=== PATIENT | female | born 1995 | race Caucasian/White ===

== ENCOUNTER → 2017-09-17 | Outpatient (CLI) | payer OTHER ==
[~2017-09-17] MED LIST: ALBIPROI INH; ALBU90I INH; ALBU90OI INH; ALBU90OI61 INH; ALBUIS IH; ASCO1ER; AZIT250 PO; AZIT500 PO; BENTYL10 MG; BIRTH CONTROL; BIRTH CONTROL IMPLAN; BIRTH CONTROL PO; BUPR150ER; CEPH250A PO; CEPH500 PO; CIPR500; CIPR500 PO; CLIN300 PO; CODACE30 PO; CODGUAEL PO; CYCL10 PO; CYPR4 PO; Cleocin HCl150 MG PO; Cyclobenzaprine5 MG PO; DOXY100 PO; DOXY100T53 PO; Desyrel50 MG; ERYES400 PO; ESOM20 PO; FLUSAL2505 INH; HA MED; HEADACHE MED PO; HYDACE5 PO; HYDR1TAB94; IBUP200 PO; IBUP400 PO; IBUP600 PO; IBUP800 PO; Keflex500 MG PO; LORA1 PO; MELATONIN; MINO50 PO; MULVITA; MULVITMIND PO; NAPR500 PO; NAPR550 PO; Norco 5-325 Ta1 EACH PO; ORTHO TRICYCLEN PO; ORTHOCYCLINE; OXYACE5T PO; Omeprazole20 M1; PERM5TC TOP; PRED20 PO; PROM25 PO; Percocet 5-3251 EACH PO; Phenergan25 MG PR; Prednisone20 MG PO; RXALBOI INH; RXCODACET PO; RXCYCL10 PO; RXHYD5325 PO; RXNAPNA550 PO; SERT100 PO; SERT50; SERT50 PO; SPACE CHAMBER1 EACH MC; SUMA25 PO; TETR250; TRAM50 PO; Zithromax250 MG PO; [UNRECOGNIZED DRUG - OTHER]; [UNRECOGNIZED DRUG - REMARK]
== END ==
LOC: LAB SHORT 15:34
DX: R10.13 Epigastric pain (principal)
CPT/HCPCS: 87338

== ENCOUNTER → 2017-11-08 | Outpatient (CLI) | payer OTHER ==
[2017-11-08 17:06] LABS: Anion Gap 10 mmol/L (6-16); BASOPHILS ABSOLUTE AUTO 0.01 K/mm3 (0.00-0.23); BASOPHILS PERCENT AUTO 0 % (0-2); Blood Urea Nitrogen 8 mg/dL (8-24); Bun/Creatinine Ratio 8.8 (12.0-20.0); CO2, Blood 25 mmol/L (21-32); Calcium, Blood 9.2 mg/dL (8.5-10.1); Chloride, Blood 103 mmol/L (98-108); Creatinine, Blood 0.91 mg/dL (0.40-1.00); EOSINOPHILS ABSOLUTE AUTO 0.02 K/mm3 (0.00-0.68); EOSINOPHILS PERCENT AUTO 0 % (0-6); Glomerular Filtration Rate >60 (60-); Glucose, Blood 93 mg/dL (70-99); Hematocrit 40.2 % (33.0-51.0); Hemoglobin 13.5 g/dL (11.5-16.0); IMMATURE GRAN ABSOLUTE AUTO 0.01 K/mm3 (0.00-0.10); IMMATURE GRAN PERCENT AUTO 0 % (0-1); LYMPHOCYTES ABSOLUTE AUTO 1.41 K/mm3 (0.84-5.20); LYMPHOCYTES PERCENT AUTO 16 % (21-46); MONOCYTES ABSOLUTE AUTO 1.18 K/mm3 (0.16-1.47); MONOCYTES PERCENT AUTO 13 % (4-13); Mean Corpuscular HGB 29.5 pg (26.0-34.0); Mean Corpuscular HGB Conc 33.6 g/dL (31.5-36.5); Mean Corpuscular Volume 88 fL (80-100); NEUTROPHILS ABSOLUTE AUTO 6.43 K/mm3 (1.96-9.15); NEUTROPHILS PERCENT AUTO 71 % (41-73); Platelet Count 190 K/mm3 (150-400); Potassium, Blood 3.8 mmol/L (3.5-5.5); RDW Coefficient Variation 12.5 % (11.7-14.2); RDW Standard Deviation 39.9 fL (35.1-46.3); Red Blood Cell Count 4.57 M/mm3 (3.80-5.20); Sodium, Blood 138 mmol/L (136-145); White Blood Cell Count 9.06 K/mm3 (4.00-11.30)
== END ==
LOC: LAB SHORT 16:45
PROVIDERS: Family Medicine
DX: N12 Tubulo-interstitial nephritis, not specified as acute or chronic (principal)
CPT/HCPCS: 80048; 85025; 87077; 87086; 87186

== ENCOUNTER 2017-11-13 07:34 | Day surgery (SDC) | payer OTHER ==
[~2017-11-13] VITALS: Ht 160 cm; Wt 76.8 kg
[~2017-11-13 07:34] MED LIST changes: -BUPR150ER; -CIPR500
[2017-11-13] MEDS ORDERED: CIPR500 (08:02)
== END 2017-11-13 09:14 | disposition home or self-care (01) ==
LOC: ORSCSDS 07:34
PROVIDERS: Internal Medicine Gastroenterology
PROC: 0DB68ZX Excision of Stomach, Via Natural or Artificial Opening Endoscopic, Diagnostic (ICD-10-PCS; principal; 2017-11-13 08:45)
DX: R10.13 Epigastric pain (principal); R11.2 Nausea with vomiting, unspecified; K25.9 Gastric ulcer, unspecified as acute or chronic, without hemorrhage or perforation; K29.80 Duodenitis without bleeding; K29.70 Gastritis, unspecified, without bleeding; K20.9 Esophagitis, unspecified; Z79.899 Other long term (current) drug therapy
CPT/HCPCS: 88305; 88342; J2250

== ENCOUNTER 2018-02-26 07:57 | Day surgery (SDC) | payer OTHER ==
[~2018-02-26] VITALS: Ht 160 cm; Wt 78.9 kg
[~2018-02-26 07:57] MED LIST changes: +CIPR500
[2018-02-26] MEDS ORDERED: BUPR150ER (08:31)
== END 2018-02-26 09:51 | disposition home or self-care (01) ==
LOC: ORSCSDS 07:57
PROVIDERS: Internal Medicine Gastroenterology
PROC: 0DB68ZX Excision of Stomach, Via Natural or Artificial Opening Endoscopic, Diagnostic (ICD-10-PCS; principal; 2018-02-26 09:00)
DX: R10.9 Unspecified abdominal pain (principal); F41.9 Anxiety disorder, unspecified; K20.9 Esophagitis, unspecified; K29.80 Duodenitis without bleeding; K29.70 Gastritis, unspecified, without bleeding; K92.1 Melena; R14.0 Abdominal distension (gaseous); J45.909 Unspecified asthma, uncomplicated; R11.0 Nausea; Z79.899 Other long term (current) drug therapy
CPT/HCPCS: 87081; 88305; 88342; J7120

== ENCOUNTER → 2018-03-25 | Outpatient (CLI) | payer OTHER ==
[~2018-03-25] MED LIST changes: +BUPR150ER
== END | disposition home or self-care (01) ==
LOC: LAB 18:00 → LAB SHORT 18:00
DX: R35.0 Frequency of micturition (principal); R82.99 Other abnormal findings in urine
CPT/HCPCS: 87086

== ENCOUNTER 2018-10-11 09:08 | Emergency (ER) | payer OTHER ==
[~2018-10-11] VITALS: Ht 160 cm; Wt 71.7 kg
[2018-10-11 09:48] LABS: BASOPHILS ABSOLUTE AUTO 0.03 K/mm3 (0.00-0.23); BASOPHILS PERCENT AUTO 1 % (0-2); EOSINOPHILS ABSOLUTE AUTO 0.03 K/mm3 (0.00-0.68); EOSINOPHILS PERCENT AUTO 1 % (0-6); Hematocrit 40.4 % (33.0-51.0); Hemoglobin 13.5 g/dL (11.5-16.0); IMMATURE GRAN PERCENT AUTO 0 % (0-1); LYMPHOCYTES ABSOLUTE AUTO 1.85 K/mm3 (0.84-5.20); LYMPHOCYTES PERCENT AUTO 37 % (21-46); MONOCYTES PERCENT AUTO 8 % (4-13); Mean Corpuscular HGB 30.6 pg (26.0-34.0); Mean Corpuscular HGB Conc 33.4 g/dL (31.5-36.5); Mean Corpuscular Volume 92 fL (80-100); Mean Platelet Volume 10.2 fL (9.1-12.4); NEUTROPHILS ABSOLUTE AUTO 2.66 K/mm3 (1.96-9.15); NEUTROPHILS PERCENT AUTO 54 % (41-73); Platelet Count 251 K/mm3 (150-400); RDW Coefficient Variation 11.8 % (11.7-14.2); RDW Standard Deviation 39.8 fL (35.1-46.3); Red Blood Cell Count 4.41 M/mm3 (3.80-5.20); White Blood Cell Count 4.97 K/mm3 (4.00-11.30)
== END 2018-10-11 10:53 | disposition home or self-care (01) ==
LOC: ER 09:08
PROVIDERS: Internal Medicine
DX: O03.4 Incomplete spontaneous abortion without complication (principal); Z88.0 Allergy status to penicillin; Z88.2 Allergy status to sulfonamides; J45.909 Unspecified asthma, uncomplicated
CPT/HCPCS: 36415; 84702; 85025; 86900; 86901; 99283

== ENCOUNTER → 2019-08-20 | Outpatient (CLI) | payer OTHER | END | disposition home or self-care (01) | LOC: LAB SHORT 15:00 → LAB 15:00 | DX: A49.01 Methicillin susceptible Staphylococcus aureus infection, unspecified site (principal) | CPT/HCPCS: 87081 ==

== ENCOUNTER → 2019-09-22 | Outpatient (CLI) | payer OTHER | END | disposition home or self-care (01) | LOC: LAB 17:44 → LAB SHORT 17:44 | DX: A49.01 Methicillin susceptible Staphylococcus aureus infection, unspecified site (principal) | CPT/HCPCS: 87081 ==

== ENCOUNTER 2022-02-16 22:00 | Emergency (ER) | payer OTHER ==
[~2022-02-16] VITALS: Ht 160 cm; Wt 81.7 kg
[~2022-02-16 22:00] MED LIST changes: +FERSU300 PO; +OMEP20ER PO; +PRENATAL TABLE1 EAC2 PO
[2022-02-16] MEDS ORDERED: Vibramycin100 MG PO (23:15)
== END 2022-02-16 23:39 | disposition home or self-care (01) ==
LOC: ER 22:00
DX: S09.8XXA Other specified injuries of head, initial encounter (principal); W50.0XXA Accidental hit or strike by another person, initial encounter; Y92.9 Unspecified place or not applicable; Z88.0 Allergy status to penicillin; Z88.2 Allergy status to sulfonamides; Z91.09 Other allergy status, other than to drugs and biological substances; Z79.899 Other long term (current) drug therapy
CPT/HCPCS: 70160; A9270; J1885

== ENCOUNTER → 2023-09-09 | Outpatient (CLI) | payer OTHER ==
[~2023-09-09] MED LIST changes: +Vibramycin100 MG PO
== END ==
LOC: LAB 11:36 → LAB SHORT 11:36
DX: R30.0 Dysuria (principal)
CPT/HCPCS: 87086

== ENCOUNTER 2024-12-18 13:32 | Inpatient (IN) | payer OTHER ==
[~2024-12-18] VITALS: Ht 157.5 cm; Wt 73.5 kg
[2024-12-18] MEDS ORDERED: Ondansetron HCl 2 MG / ML 2ML Vial IV ONE ×3 (14:15→18:05)
[2024-12-18] MEDS ORDERED: NS 1,000 ML IV SCH ×3 (14:15→22:30)
[2024-12-18] MEDS ORDERED: FentaNYL Citrate 50 MCG/ML 2 ML Injection IV ONE ×2 (14:20→18:05)
[2024-12-18 14:47] LABS: BASOPHILS ABSOLUTE AUTO 0.04 K/mm3 (0.00-0.23); BASOPHILS PERCENT AUTO 0 % (0-2); EOSINOPHILS PERCENT AUTO 0 % (0-6); Hematocrit 41.3 % (33.0-51.0); Hemoglobin 14.6 g/dL (11.5-16.0); IMMATURE GRAN ABSOLUTE AUTO 0.06 K/mm3 (0.00-0.10); IMMATURE GRAN PERCENT AUTO 0 % (0-1); LYMPHOCYTES ABSOLUTE AUTO 1.21 K/mm3 (0.84-5.20); LYMPHOCYTES PERCENT AUTO 9 % (21-46); MONOCYTES ABSOLUTE AUTO 0.41 K/mm3 (0.16-1.47); MONOCYTES PERCENT AUTO 3 % (4-13); Mean Corpuscular HGB 30.5 pg (26.0-34.0); Mean Corpuscular HGB Conc 35.4 g/dL (31.5-36.5); Mean Corpuscular Volume 86 fL (80-100); Mean Platelet Volume 10.9 fL (9.1-12.4); NEUTROPHILS ABSOLUTE AUTO 11.78 K/mm3 (1.96-9.15); NEUTROPHILS PERCENT AUTO 87 % (41-73); Platelet Count 287 K/mm3 (150-400); RDW Standard Deviation 37.8 fL (35.1-46.3); Red Blood Cell Count 4.79 M/mm3 (3.80-5.20)
[2024-12-18 15:55] LABS: Albumin, Blood 4.2 g/dL (3.4-5.0); Albumin/Globulin Ratio 1.1 (0.8-1.8); Bilirubin, Total 0.8 mg/dL (0.1-1.0); Bun/Creatinine Ratio 14.5 (12.0-20.0); Calcium, Blood 9.5 mg/dL (8.5-10.1); Creatinine, Blood 0.9 mg/dL (0.40-1.00); Globulin, Blood 3.7 g/dL (2.2-4.0); Potassium, Blood 3.6 mmol/L (3.5-5.5); Total Protein, Blood 7.9 g/dL (6.4-8.2)
[2024-12-18] MEDS ORDERED: Meclizine HCl 25 MG Tab PO ONE ×2 (18:40→20:35)
[2024-12-18] MEDS ORDERED: LORazepam 2 MG/ML 1ML Injection IV ONE ×2 (18:40→20:35)
[2024-12-18 19:05] LABS: Influenza A, PCR NEGATIVE (NEGATIVE); Influenza B, PCR NEGATIVE (NEGATIVE); Resp Syncytial Virus, PCR NEGATIVE (NEGATIVE); SARS-Cov-2 (COVID-19) PCR, MMC NEGATIVE (NEGATIVE)
[2024-12-18 19:45] LABS: Source, Urine Clean Catch
[2024-12-18 19:52] LABS: Appearance, Urine Clear (Clear); Bilirubin, Urine Neg (Neg); Blood, Urine Neg (Neg); Color, Urine Yellow (P-Yellow); Glucose Qualitative, Urine Neg (Neg); Ketones, Urine 4+ (Neg); Leukocyte Esterase, Urine Neg (Neg); Nitrite, Urine Neg (Neg); Protein, Urine 2+ (Neg); Urobilinogen, Urine NORM (Normal)
[2024-12-18 20:03] LABS: Red Blood Cells, Urine 0-2 /hpf (0-2); Squamous Epithelial Cells Few /hpf (Few)
[2024-12-18 20:04] LABS: Bacteria Few /hpf; Mucus Mod (0-Heavy)
[2024-12-18] MEDS ORDERED: FLU VACC TS2024-25(6MOS UP)/PF 45 MCG/0.5 ML SYRINGE IM ONE (22:30)
[2024-12-18] MEDS ORDERED: Ondansetron HCl 2 MG / ML 2ML Vial IV PRN (22:30)
[2024-12-18] MEDS ORDERED: Enoxaparin 40 MG/0.4 ML SYR SC SCH (23:00)
[2024-12-18 23:59] VITALS: BP 149/86
[2024-12-19] MEDS ORDERED: Metoclopramide HCl 5MG / ML 2ML Vial IV PRN ×2 (00:35→20:05)
[2024-12-19] MEDS ORDERED: Acetaminophen 325 MG TABLET PO PRN (00:35)
[2024-12-19] MEDS ORDERED: DESV50 PO (00:45)
[2024-12-19] MEDS ORDERED: ESCI20 PO (00:47)
[2024-12-19] MEDS ORDERED: TOPI25 PO (00:48)
[2024-12-19 04:29] VITALS: BP 140/88
[2024-12-19] MEDS ORDERED: FentaNYL Citrate 50 MCG/ML 2 ML Injection IV PRN (05:15)
[2024-12-19 06:13] LABS: BASOPHILS ABSOLUTE AUTO 0.02 K/mm3 (0.00-0.23); BASOPHILS PERCENT AUTO 0 % (0-2); EOSINOPHILS ABSOLUTE AUTO 0.01 K/mm3 (0.00-0.68); EOSINOPHILS PERCENT AUTO 0 % (0-6); Hemoglobin 13.3 g/dL (11.5-16.0); IMMATURE GRAN ABSOLUTE AUTO 0.02 K/mm3 (0.00-0.10); IMMATURE GRAN PERCENT AUTO 0 % (0-1); LYMPHOCYTES ABSOLUTE AUTO 1.32 K/mm3 (0.84-5.20); LYMPHOCYTES PERCENT AUTO 13 % (21-46); MONOCYTES ABSOLUTE AUTO 0.77 K/mm3 (0.16-1.47); MONOCYTES PERCENT AUTO 7 % (4-13); Mean Corpuscular HGB 30.2 pg (26.0-34.0); Mean Corpuscular HGB Conc 34.1 g/dL (31.5-36.5); Mean Corpuscular Volume 88 fL (80-100); Mean Platelet Volume 10.1 fL (9.1-12.4); NEUTROPHILS PERCENT AUTO 79 % (41-73); Platelet Count 308 K/mm3 (150-400); RDW Coefficient Variation 12.2 % (11.7-14.2); RDW Standard Deviation 39.3 fL (35.1-46.3); Red Blood Cell Count 4.41 M/mm3 (3.80-5.20); White Blood Cell Count 10.34 K/mm3 (4.00-11.30)
--- NOTE | 2024-12-19 06:19 | NUR ---
SHIFT SUMMARY PT A&OX4 AND ASNWERS QUESTIONS APPROPRIATELY. PT ARRIVED ON UNIT AROUND 2355 AND WAS ORIENTATED TO THE ROOM AND UNIT. PT HAVING IRRETRACABLE NAUSEA/VOMITING. MEDICATED W/ ZOFRAN AND REGLAN. PT VSS, NO OCOMPLAITNS OF CP/PRESSURE OR SOB. MEDICATED SCHEDULED AND PRN. NO ACUTE EVENTS AT THIS TIME. PT SPENT MOST OF SHIFT IN BED WITH EYES CLOSED AND RESPIRATIONS EVEN AND UNLABORED.
[2024-12-19 06:33] LABS: Albumin/Globulin Ratio 1.1 (0.8-1.8); Bilirubin, Total 0.4 mg/dL (0.1-1.0); Bun/Creatinine Ratio 12.1 (12.0-20.0); Calcium, Blood 9.1 mg/dL (8.5-10.1); Creatinine, Blood 0.83 mg/dL (0.40-1.00); Globulin, Blood 3.5 g/dL (2.2-4.0); Potassium, Blood 3.6 mmol/L (3.5-5.5); Total Protein, Blood 7.5 g/dL (6.4-8.2)
[2024-12-19 07:15] VITALS: BP 115/65
[2024-12-19] MEDS ORDERED: Meclizine HCl 25 MG Tab PO SCH (09:00)
[2024-12-19] MEDS ORDERED: LORazepam 2 MG/ML 1ML Injection IV ONE ×3 (09:05→22:50)
[2024-12-19 11:54] VITALS: BP 113/64
[2024-12-19] MEDS ORDERED: Acetamin/Butalbital/Caffeine Tab PO PRN (13:00)
--- NOTE | 2024-12-19 16:17 | NUR ---
pt has had c/o nausea and migraine. md aware and new medication for migraine was ordered and resolved. scheduled medication resolved nausea. pt and have no questions or concerns at this time.
[2024-12-19 16:40] VITALS: BP 117/76
[2024-12-19] MEDS ORDERED: Promethazine HCl 25 MG Tab PO PRN (18:50)
--- NOTE | 2024-12-19 20:30 | NUR ---
PERSISTENT NAUSEA W/EMESIS AND NEW ORDERS: ALERTED BLANCA (TRADE SHOW SPECIALIST) OF ONGOING NAUSEA, DRY HEAVING AND EMESIS W/NEW ONSET COFFEE GROUND APPEARANCE AND SCANT AMT OF BLOOD. ZOFRAN WAS PREVIOUSLY PROVIDED FOR NO AFFECT. NEW ORDER RECEIVED FOR REGLAN 5MG IV Q4H PRN. 1ST DOSE REGLAN RECEIVED AND FENTANYL 50MCG IV PRN WAS PROVIDED FOR RAUSCH. UNABLE TO GIVE PO TOPAMAX, ANTIVERT, EFFEXOR OR FIORACET AT THIS TIME D/T FREQ. URELIEVED VOMITING. WILL MONITOR FOR AFFECT.
[2024-12-19] MEDS ORDERED: Topiramate 25 MG Tab PO SCH (21:00)
[2024-12-19] MEDS ORDERED: Venlafaxine HCl 75 MG CapCR PO SCH (21:00)
[2024-12-19 21:24] LABS: Base Excess Venous -4.8 mmol/L; Bicarbonate Venous 21.3 mmol/L (24.0-30.0); PCO2 Venous 32.4 mmHg (38-42)
[2024-12-19 21:56] VITALS: BP 145/97
--- NOTE | 2024-12-19 22:15 | NUR ---
N/V PERSISTS, PRIOR MEDS INEFFECTIVE: BLANCA (BAIL BONDSMAN) MADE AWARE THAT REGLAN WAS INEFECTIVE AND PT CONT'S TO VOMIT BROWN LIQUID W/COFFEE GROUND APPEARANCE. NEW ORDER RECEIVED FOR STAT VBG AND LORAZAPAM 1MG IV NOW. MED RECEIVED PER EMAR, AWATING EFFECT.
[2024-12-19] MEDS ORDERED: FentaNYL Citrate 50 MCG/ML 2 ML Injection IV ONE (22:50)
[2024-12-19] MEDS ORDERED: Lactated Ringer's 1,000 ML IV SCH (22:50)
--- NOTE | 2024-12-19 23:25 | NUR ---
N/V AND RAUSCH PERSISTS, PROVIDER NOTIFIED: BLANCA (MANAGER LABOR RELATIONS) MADE AWARE OF PERSISTENT RAUSCH W/DRY HEAVES AND FREQ. EMESIS PREVIOUSLY DESCRIBED. PT UNABLE TO TOLERATE ANY PO INTAKE. NEW ORDER RECEIVED FOR FENTANYL 50MCG IV NOW, ATIVAN 1MG IV NOW, LR AT 200 ML/HR AND EKG TO CHECK QT PROLONGATION FOR POSSIBLE ADDITION OF PRN COMPAZINE. NEW IV PLACED TO R.WRIST D/T PRIOR IV LEAKING. MEDS PROVIDED PER EMAR, AWAITING EFFECT.
--- NOTE | 2024-12-20 04:30 | NUR ---
PT SLEPT FOR AWHILE FOLLOWING PRIOR MEDS BUT AWOKE DRY HEAVING W/EMESIS AND C/O RASUCH AND DIZZINESS. IV ZOFRAN AND FENTANYL PROVIDED PRN AND THEN TRIALED PO PHENERGAN AND MISSED HS DOSE OF ANTIVERT W/VERY SMALL SIP OF WATER. WILL MONITOR FOR AFFECT OR NEED FOR ADDITIONAL MEDS.
[2024-12-20 04:54] VITALS: BP 131/85
--- NOTE | 2024-12-20 05:15 | NUR ---
SUMMARY: PT A/OX4, CALLS APPROPRIATELY TO SPECIFY NEEDS AND IS UP AD LATISHA W/'S ASSISTANCE. SHE'S HAD FREQUENT AND INTRACTABLE RAUSCH, NAUSEA, DRY HEAVING AND EMESIS T/O NOCTE. PT ALSO DEVELOPED COFFEE GROUND EMESIS W/SMALL AMT RED BLOOD. PROVIDER MADE AWARE WITH MULTIPLE NEW ANTIEMETICS RX'D AND RECIEVED THIS SHIFT. PT HAS HAD MULTIPLE DOSES IV ZOFRAN, REGLAN, FENTANYL AND ATIVAN FOR TEMPORARY MILD RELIEF. AND THIS AM SHE FINALLY TOLERATED PO PHENERGAN AND HS DOSE OF ANTIVERT IN A SMALL SIP OF WATER. LR WAS COMMENCED AT 200 ML/HR D/T INABILITY TO TOLERATE PO INTAKE AND LOVENOX WAS DC'D W/SCD'S RX'D FOR DVT PROPHYLAXIS. VBG WAS COMPLETED AND AN EKG WAS PERFORMED TO ASSESS FOR QT PROLONGATION AND POSSIBILITY OF PRN COMPAZINE. SEE PRIOR NOTES FOR ADDITIONAL DETAILS. SHE'S REMAINED S.DEBBIE-NSR AT 50'S-60'S BPM W/ALL OTHER VSS. NEW IV WAS PLACED TO L.WRIST D/T PRIOR IV LEAKING. NO ACUTE CHANGES. WCTM AND REPORT TO DAY RN. MEDS SO WAS COMMENCED ON LR AT 200 ML/HR.
--- NOTE | 2024-12-20 07:29 | NUR ---
ASSUMPTION OF CARE: ASSUMED CARE OF PATIENT. SLEEPING DURING SHIFT CHANGE REPORT; DID NOT WAKE PATIENT HAD DIFFICULTY SLEEPING AND IS ACTIVELY NAUSEA/VOMITING WHEN AWAKE. AT BEDSIDE.
[2024-12-20 07:39] VITALS: BP 134/89
[2024-12-20 07:50] LABS: BASOPHILS ABSOLUTE AUTO 0.01 K/mm3 (0.00-0.23); BASOPHILS PERCENT AUTO 0 % (0-2); EOSINOPHILS ABSOLUTE AUTO 0.06 K/mm3 (0.00-0.68); EOSINOPHILS PERCENT AUTO 1 % (0-6); Hematocrit 41.2 % (33.0-51.0); Hemoglobin 14.1 g/dL (11.5-16.0); IMMATURE GRAN ABSOLUTE AUTO 0.03 K/mm3 (0.00-0.10); IMMATURE GRAN PERCENT AUTO 0 % (0-1); LYMPHOCYTES PERCENT AUTO 16 % (21-46); MONOCYTES ABSOLUTE AUTO 0.64 K/mm3 (0.16-1.47); MONOCYTES PERCENT AUTO 7 % (4-13); Mean Corpuscular HGB 30.3 pg (26.0-34.0); Mean Corpuscular HGB Conc 34.2 g/dL (31.5-36.5); Mean Corpuscular Volume 89 fL (80-100); Mean Platelet Volume 10.4 fL (9.1-12.4); NEUTROPHILS ABSOLUTE AUTO 7.49 K/mm3 (1.96-9.15); NEUTROPHILS PERCENT AUTO 76 % (41-73); Platelet Count 300 K/mm3 (150-400); RDW Coefficient Variation 12.1 % (11.7-14.2); RDW Standard Deviation 39.7 fL (35.1-46.3); Red Blood Cell Count 4.65 M/mm3 (3.80-5.20); White Blood Cell Count 9.83 K/mm3 (4.00-11.30)
[2024-12-20 08:09] LABS: Albumin, Blood 4.1 g/dL (3.4-5.0); Albumin/Globulin Ratio 1.1 (0.8-1.8); Bilirubin, Total 0.4 mg/dL (0.1-1.0); Bun/Creatinine Ratio 13.7 (12.0-20.0); Creatinine, Blood 0.73 mg/dL (0.40-1.00); Globulin, Blood 3.6 g/dL (2.2-4.0); Potassium, Blood 3.5 mmol/L (3.5-5.5); Total Protein, Blood 7.7 g/dL (6.4-8.2)
--- NOTE | 2024-12-20 10:55 | NUR ---
VERBAL ORDER FROM DR. SANDERS TO DECREASE LR TO 75mL/hr FROM 200mL/hr. PLAN TO KEEP ONE MORE NIGHT TO HELP HYDRATE.
[2024-12-20 12:08] VITALS: BP 117/74
[2024-12-20] MEDS ORDERED: Meclizine HCl 25 MG Tab PO PRN (14:00)
[2024-12-20] MEDS ORDERED: Meclizine HCl 25 MG Tab PO SCH (14:00)
--- NOTE | 2024-12-20 15:01 | NUR ---
T.O. FOR 30MG TORADOL Q6H PRN.
[2024-12-20] MEDS ORDERED: Ketorolac Tromethamine 30mg Vial IV PRN (15:05)
--- NOTE | 2024-12-20 15:17 | NUR ---
PATIENT c C/O SEVERE NAUSEA, VOMITING AND EPIGASTRIC SPASM-TYPE OF PAIN. IV TORADOL ADMINISTERED. THIS RN ASKED IF PATIENT IS USING OZEMPIC OR ANY OTHER TYPE OF WEIGHT LOSS INJECTION AND STATES SHE HAD A 0.25MG DOSE OF SEMAGLUTIDE INJECTION LESS THAN ONE WEEK AGO, A FEW DAYS PRIOR TO HER BEING ADMITTED. CALL TO DR SANDERS; NO ANSWER.
[2024-12-20] MEDS ORDERED: LORazepam 2 MG/ML 1ML Injection IV PRN (15:30)
[2024-12-20 16:13] VITALS: BP 160/114
--- NOTE | 2024-12-20 17:10 | NUR ---
PATIENT CALLED TO STATE SHE'D THROWN UP THE ORAL PROMETHAZINE (VISUALIZED IN EMESIS). CALL TO DR HYDE; LEFT MESSAGE REQUESTING ORDER FOR PROMETHAZINE SUPPOSITORY ALTERNATIVE SINCE UNABLE TO KEEP ORAL PROMETHAZINE DOWN.
--- NOTE | 2024-12-20 18:23 | NUR ---
END OF SHIFT SUMMARY: A&Ox4. PLEASANT AND COOPERATIVE WITH CARE. CALLS APPROPRIATELY AND IS ABLE TO ADVOCATE NEEDS EFFECTIVELY. INDEPENDENT c AMBULATION BUT PROVIDES SBA FOR LINE MANAGEMENT. LBM TODAY. CONTINUES TO HAVE SEVERE AND EPISODIC EPIGASTRIC PAIN/SPASMING AND NAUSEA/VOMITING DESPITE ANTICHOLINERGIC AND ANTIEMETIC ADMINISTRATIONS. AT ONE POINT, VOMITED PROMETHAZINE; MESSAGE FOR Dejuan SANDERS TO ADD PRN PROMETHAZINE SUPPOSITORY IF UNABLE TO TOLERATE PO; AWAITING RESPONSE. WAS ABLE TO SHOWER. MAINTAINING SPO2 >92% ON RA. TELE SINUS @ 79. NO NOTED QT-PROLONGATION NOTED. BED IN LOWEST POSITION, CALL LIGHT WITHIN REACH, ALL NEEDS MET. REPORT TO ONCOMING NURSE.
[2024-12-20] MEDS ORDERED: Promethazine HCl 25 MG Supp PR PRN (18:40)
[2024-12-20 19:48] VITALS: BP 122/81
[2024-12-21 00:04] VITALS: BP 106/66
--- NOTE | 2024-12-21 03:44 | NUR ---
SUMMARY: PT A/OX4, CALLS APPROPRIATELY TO SPECIFY NEEDS AND IS PLEASANT AND COOPERATIVE W/CARE. NAUSEA, EPIGASTRIC PAIN, RAUSCH AND DIZZINESS PERSISTS BUT SYMPTOMS ARE SIGNIFICANTLY IMPROVED FROM PREVIOUS NOCTE. NO EMESIS OBSERVED T/O NOCTE AND PT NOW TOLERATING SMALL SIPS LIQUIDS AT TIMES. LR INFUSES AT 75 ML/HR. SHE'S REQUIRED IV REGLAN, ZOFRAN, ATIVAN, TORADOL, PO PHENERGAN AND X1 DOSE ANTIVERT IN ADDITION TO SCHEDULED TOPAMAX AND ANTIVERT TO KEEP SYMPTOMS MANAGEABLE. PT SHOWERED A COUPLE TIMES WHEN FEELING UNWELL AND HAD K-PAD IN PLACE FOR IMPROVED RELIEF OF PAIN/DISCOMFORT. SHE'S DEBBIE-NSR AT 60'S-80'S BPM. NO ACUTE CHANGES, VSS/AFEBRILE. WCTM AND REPORT TO DAY RN.
[2024-12-21] MEDS ORDERED: Meclizine HCl 25 MG Tab PO ONE (03:55)
[2024-12-21 03:56] VITALS: BP 156/96
[2024-12-21] MEDS ORDERED: Metoclopramide HCl 5MG / ML 2ML Vial IV ONE (05:35)
[2024-12-21] MEDS ORDERED: LORazepam 2 MG/ML 1ML Injection IV ONE (05:35)
--- NOTE | 2024-12-21 06:05 | NUR ---
PT BECAME VERY DIZZY THIS MORNING, PROGRESSING TO NAUSEA W/EMESIS. ADDITIONAL DOSE OF ANTIVERT WAS RX'D AND RECEIVED BUT PT HAD EMESIS FOLLOWING MED. REGLAN 10MG IV X1 AND ATIVAN 1MG IV X1 RX'D FOR BREAKTHROUGH N/V. MEDS RECEIVED AND PT IS NOW SLEEPING W/O CURRENT S/S EPIGASTRIC DISTRESS.
[2024-12-21] MEDS ORDERED: D5W-1/2NS 1,000 ML IV SCH (08:10)
[2024-12-21 09:18] VITALS: BP 141/93
--- NOTE | 2024-12-21 10:48 | NUR ---
assumed care of pt. entered room pt was a/o yet refusing vitals wanting to not be bothered because she still had sever nausea and dizziness, meds were not availble yet and pt was ok waiting until due.
--- NOTE | 2024-12-21 10:51 | NUR ---
pt medicated with supp and iv medication, currently n/v is controlled and pt trying to sleep. mother at bedside awaiting MD to arrive .
[2024-12-21] MEDS ORDERED: Pantoprazole Sodium 40 MG Injection IV ONE (13:05)
[2024-12-21 16:01] VITALS: BP 146/102
[2024-12-21 19:59] VITALS: BP 146/90
[2024-12-21] MEDS ORDERED: Pantoprazole Sodium 40 MG Injection IV SCH (21:00)
--- NOTE | 2024-12-22 05:03 | NUR ---
SHIFT SUMMARY 29 YR F ADMITTED ON 12/18/24. FULL CODE. NO ACUTE CHANGES THIS SHIFT. PT STATES THAT SHE IS FEELING BETTER AND VOMITING WAS AT A MINIMUM THROUGHOUT THE NIGHT. SHE IS STILL BEING MEDICATED REGULARLY FOR PAIN AND NAUSEA. MOM IS AT BEDSIDE AND STATED THAT SHE THINKS HER DAUGHTER IS FINALLY "TURNING A CORNER". PT WAS ABLE TO TOLERATE ICE CHIPS AND AN CZECH ICE. BED IN LOW POSITION AND CALL LIGHT IN REACH.
[2024-12-22 05:26] VITALS: BP 93/55
[2024-12-22 05:59] LABS: BASOPHILS ABSOLUTE AUTO 0.04 K/mm3 (0.00-0.23); BASOPHILS PERCENT AUTO 1 % (0-2); EOSINOPHILS ABSOLUTE AUTO 0.08 K/mm3 (0.00-0.68); EOSINOPHILS PERCENT AUTO 1 % (0-6); Hematocrit 37.7 % (33.0-51.0); Hemoglobin 13.4 g/dL (11.5-16.0); IMMATURE GRAN ABSOLUTE AUTO 0.01 K/mm3 (0.00-0.10); IMMATURE GRAN PERCENT AUTO 0 % (0-1); LYMPHOCYTES ABSOLUTE AUTO 3.36 K/mm3 (0.84-5.20); LYMPHOCYTES PERCENT AUTO 44 % (21-46); MONOCYTES ABSOLUTE AUTO 0.68 K/mm3 (0.16-1.47); MONOCYTES PERCENT AUTO 9 % (4-13); Mean Corpuscular HGB 30.6 pg (26.0-34.0); Mean Corpuscular HGB Conc 35.5 g/dL (31.5-36.5); Mean Corpuscular Volume 86 fL (80-100); Mean Platelet Volume 10.5 fL (9.1-12.4); NEUTROPHILS ABSOLUTE AUTO 3.42 K/mm3 (1.96-9.15); NEUTROPHILS PERCENT AUTO 45 % (41-73); Platelet Count 265 K/mm3 (150-400); RDW Coefficient Variation 11.8 % (11.7-14.2); RDW Standard Deviation 37.4 fL (35.1-46.3); Red Blood Cell Count 4.38 M/mm3 (3.80-5.20); White Blood Cell Count 7.59 K/mm3 (4.00-11.30)
[2024-12-22 06:33] LABS: Albumin, Blood 3.5 g/dL (3.4-5.0); Anion Gap 9 mmol/L (3-11); Blood Urea Nitrogen 9 mg/dL (8-24); Bun/Creatinine Ratio 9.8 (12.0-20.0); CO2, Blood 24 mmol/L (21-32); Calcium, Blood 8.5 mg/dL (8.5-10.1); Chloride, Blood 105 mmol/L (98-108); Creatinine, Blood 0.92 mg/dL (0.40-1.00); Glomerular Filtration Rate 85 (60-); Glucose, Blood 94 mg/dL (70-99); Magnesium, Blood 2.2 mg/dL (1.6-2.4); Phosphorus, Blood 3.3 mg/dL (2.5-4.9); Sodium, Blood 135 mmol/L (136-145)
[2024-12-22 08:21] VITALS: BP 111/73
[2024-12-22 11:27] VITALS: BP 111/75
[2024-12-22] MEDS ORDERED: D5W-1/2NS 1,000 ML IV SCH (14:15)
[2024-12-22] MEDS ORDERED: Potassium Chloride 40 MEQ in NS 250 ML IV ONE (14:25)
[2024-12-22] MEDS ORDERED: NS 1,000 ML IV SCH (15:00)
[2024-12-22 16:27] VITALS: BP 116/78
[2024-12-22] MEDS ORDERED: Thiamine HCl 100 MG in NS 50 ML IV SCH (17:08)
--- NOTE | 2024-12-22 18:41 | NUR ---
ASSUMED CARE OF PT PT DID VERY WELL STILL STRUGGLING WITH NAUSEA AND ABD PAIN BUT DID NOT VOMIT AND STATED SHE WAS FEELING MUCH BETTER. INCREASED FLUIDS GIVEN TO PT ALONG WITH INCREASED ICE AND CHIPS PT KEVIN KYRGYZ ICE. IV TO RIGHT FA STILL INFUSING BUT POTASSIUM NEEDED TO BE SLOWED DOWN DUE TO PAIN. MOTHER AT BEDSIDE TO ASSIST WITH CARE.
[2024-12-22 20:10] VITALS: BP 110/83
[2024-12-22] MEDS ORDERED: Docusate Sodium/Senna 1 Tab PO SCH (21:00)
[2024-12-22] MEDS ORDERED: BusPIRone HCl 10 MG Tab PO SCH (21:00)
--- NOTE | 2024-12-22 23:41 | NUR ---
PT AWAKE, A&O, DURING SHIFT REPORT. PT'S MOM IN RM AT BS. LATER AND SON IN TO VISIT FOR A COUPLE OF HOURS WELL. PT'S MOM REMAINS SLEEPING IN RM AT BS. PT MEDICATED FOR PAIN AND NAUSEA PER EMAR. UP TO BTHRM INDEPENDENTLY NEEDED. IVF'S INFUSING PER EMAR. CALL LT IN REACH, ABLE TO MAKE NEEDS KNOWN.
[2024-12-23 00:44] VITALS: BP 114/82
--- NOTE | 2024-12-23 04:00 | NUR ---
RESUMED LEVEL OF CARE PT WITH NO ACUTE CHANGES NOTED. PT CONT WITH D5 1/2 NS INFUSING AT 100/HR. PT MOTHER AT BEDSIDE. PT NOTED TO SLEEP THROUGHOUT THE NIGHT WITH NO C/O NOTED CALL LIGHT WITHIN REACH AND BED IN LOWEST POSITION.
[2024-12-23 04:50] VITALS: BP 135/92
[2024-12-23 05:57] LABS: Albumin, Blood 3.2 g/dL (3.4-5.0); Anion Gap 6 mmol/L (3-11); Blood Urea Nitrogen 8 mg/dL (8-24); Bun/Creatinine Ratio 8.2 (12.0-20.0); CO2, Blood 25 mmol/L (21-32); Calcium, Blood 8.3 mg/dL (8.5-10.1); Chloride, Blood 112 mmol/L (98-108); Creatinine, Blood 0.98 mg/dL (0.40-1.00); Glomerular Filtration Rate 79 (60-); Glucose, Blood 90 mg/dL (70-99); Phosphorus, Blood 3.5 mg/dL (2.5-4.9); Potassium, Blood 3.6 mmol/L (3.5-5.5); Sodium, Blood 139 mmol/L (136-145)
[2024-12-23 07:34] VITALS: BP 136/94
--- NOTE | 2024-12-23 08:19 | NUR ---
ASSUMPTION OF CARE: ASSUMED CARE OF PATIENT. ASLEEP DURING SHIFT CHANGE REPORT, SLEEPING ON LEFT SIDE, FACING THE WALL. MOTHER, BRIDGETTE, SLEEPING ON GUEST BED. D5 1/2 RUNNING @ 100mL/hr. BED IN LOWEST POSITION. CALL LIGHT WITHIN REACH. NO ACUTE NEEDS.
[2024-12-23] MEDS ORDERED: Potassium Chl 10MEQ/Water100ML 100 ML IV ONE (10:10)
[2024-12-23 11:31] VITALS: BP 120/83
--- NOTE | 2024-12-23 11:31 | NUR ---
ASSUMED CARE OF PT MEDICATED WITH TORADOL FOR ABD PAIN, POSSILBLY RELATED TO INTENSE NAUSEA AND RETCHIN 1045 ABD ULTRA SOUND OF GALLBLADDER DONE .
[2024-12-23 16:06] VITALS: BP 111/79
--- NOTE | 2024-12-23 18:12 | NUR ---
END OF SHIFT SUMMARY: A&Ox4. PLEASANT AND COOPERATIVE WITH CARE. CALLS APPROPRIATELY AND IS ABLE TO ADVOCATE NEEDS EFFECTIVELY. CONTINENT x2. INDEPENDENT. LBM SEVERAL DAYS AGO AND REPORTS THIS IS NORMAL FOR HER SINCE HAVING HER CHILDREN. MEDS WHOLE c FLUIDS. LESS PAIN TODAY; STILL UNABLE TO GET MUCH DOWN IN THE WAY OF FLUIDS, LET ALONE FOODS. CHANGED TO CLEAR LIQUID DIET. ABD US COMPLETED. LAST EPISODE OF EMESIS 192912/21/24. IN BETTER SPIRITS AFTER AND CHILDREN VISITED. MOTHER, BRIDGETTE, PLANS TO STAY THE NIGHT AGAIN. BED IN LOWEST POSITION, CALL LIGHT WITHIN REACH, ALL NEEDS MET. REPORT TO ONCOMING NURSE.
[2024-12-23] MEDS ORDERED: MethylPREDNISolone Sod Succ 125 MG Vial IV ONE (19:00)
[2024-12-23 20:14] VITALS: BP 119/80
[2024-12-24 03:28] VITALS: BP 128/95
--- NOTE | 2024-12-24 04:39 | NUR ---
SHIFT SUMMARY; PATIENT SLEPT IN SHORT INTERVALS. MEDICATED TWICE WITH REGLAN, NO EMESIS. MEDICATED FOR PAIN AND ANXIETY. IV FLUIDS, D51/2NS/100ML/HR ALL NIGHT. TELE SR 78.
[2024-12-24 05:23] LABS: BASOPHILS ABSOLUTE AUTO 0.01 K/mm3 (0.00-0.23); BASOPHILS PERCENT AUTO 0 % (0-2); EOSINOPHILS PERCENT AUTO 0 % (0-6); Hematocrit 36.9 % (33.0-51.0); Hemoglobin 13.1 g/dL (11.5-16.0); IMMATURE GRAN ABSOLUTE AUTO 0.01 K/mm3 (0.00-0.10); IMMATURE GRAN PERCENT AUTO 0 % (0-1); LYMPHOCYTES ABSOLUTE AUTO 0.85 K/mm3 (0.84-5.20); LYMPHOCYTES PERCENT AUTO 17 % (21-46); MONOCYTES ABSOLUTE AUTO 0.34 K/mm3 (0.16-1.47); MONOCYTES PERCENT AUTO 7 % (4-13); Mean Corpuscular HGB 30.6 pg (26.0-34.0); Mean Corpuscular HGB Conc 35.5 g/dL (31.5-36.5); Mean Corpuscular Volume 86 fL (80-100); Mean Platelet Volume 10.4 fL (9.1-12.4); NEUTROPHILS ABSOLUTE AUTO 3.79 K/mm3 (1.96-9.15); NEUTROPHILS PERCENT AUTO 76 % (41-73); Platelet Count 238 K/mm3 (150-400); RDW Coefficient Variation 11.3 % (11.7-14.2); RDW Standard Deviation 35.9 fL (35.1-46.3); Red Blood Cell Count 4.28 M/mm3 (3.80-5.20)
[2024-12-24 05:50] LABS: Albumin, Blood 3.3 g/dL (3.4-5.0); Bilirubin, Total 0.6 mg/dL (0.1-1.0); Bun/Creatinine Ratio 8.2 (12.0-20.0); Creatinine, Blood 0.98 mg/dL (0.40-1.00); Globulin, Blood 3.2 g/dL (2.2-4.0); Phosphorus, Blood 3.2 mg/dL (2.5-4.9); Potassium, Blood 3.8 mmol/L (3.5-5.5); Total Protein, Blood 6.5 g/dL (6.4-8.2)
--- NOTE | 2024-12-24 07:31 | NUR ---
ASSUMPTION OF CARE: ASSUMED CARE OF PATIENT. ASLEEP DURING SHIFT CHANGE REPORT. LYING IN BED; MOTHER ON GUEST BED. D5 1/2 @ 100mL/hr. BREATHING EVEN AND UNLABORED. ROOM AIR. TELE NSR. BED IN LOWEST POSITION. CALL LIGHT WITHIN REACH. NO ACUTE NEEDS.
[2024-12-24 07:51] VITALS: BP 140/83
[2024-12-24] MEDS ORDERED: MethylPREDNISolone Sod Succ 125 MG Vial IV SCH (11:00)
[2024-12-24 11:28] VITALS: BP 122/86
[2024-12-24] MEDS ORDERED: Metoclopramide HCl 5MG / ML 2ML Vial IV PRN (15:40)
[2024-12-24] MEDS ORDERED: DiphenhydrAMINE HCl 50 MG/ML 1ML Vial IV SCH (16:00)
[2024-12-24 17:40] VITALS: BP 130/90
--- NOTE | 2024-12-24 19:39 | NUR ---
END OF SHIFT SUMMARY: A&Ox4. PLEASANT AND COOPERATIVE WITH CARE. CALLS APPROPRIATELY AND IS ABLE TO ADVOCATE NEEDS EFFECTIVELY. CONTINENT x2. INDEPENDENT. LBM SEVERAL DAYS AGO AND REPORTS THIS IS NORMAL FOR HER SINCE HAVING HER CHILDREN. MEDS WHOLE c FLUIDS. DID WELL MOST OF DAY, BUT DID END UP WITH NAUSEA/VOMITING AROUND 1800. REPORTED RIGHT BREAST LUMP TODAY; PROLACTIN DRAWN AND SLIGHTLY ELEVATED BELIEVED TO BE RELATED TO SSRIs. PROVIDER ADDED BENADRYL AND DC D TORADOL AMONG SOME OTHER MEDICATION CHANGES. MOTHER @ BEDSIDE TODAY. TEARFUL WHEN VOMITING, STATING, I DON T WANT TO BE SICK ANYMORE! CONSIDERING PPN TOMORROW IF IV STEROIDS INEFFECTIVE. BED IN LOWEST POSITION, CALL LIGHT WITHIN REACH, ALL NEEDS MET. REPORT TO ONCOMING NURSE.
[2024-12-24 19:50] VITALS: BP 120/82
[2024-12-24] MEDS ORDERED: FentaNYL Citrate 50 MCG/ML 2 ML Injection IV PRN (19:50)
[2024-12-24] MEDS ORDERED: Famotidine 20 MG Tab PO SCH (21:00)
[2024-12-25 03:26] VITALS: BP 125/84
[2024-12-25 04:58] LABS: BASOPHILS PERCENT AUTO 0 % (0-2); EOSINOPHILS PERCENT AUTO 0 % (0-6); Hematocrit 36.8 % (33.0-51.0); Hemoglobin 12.7 g/dL (11.5-16.0); IMMATURE GRAN ABSOLUTE AUTO 0.03 K/mm3 (0.00-0.10); IMMATURE GRAN PERCENT AUTO 1 % (0-1); LYMPHOCYTES ABSOLUTE AUTO 0.97 K/mm3 (0.84-5.20); LYMPHOCYTES PERCENT AUTO 15 % (21-46); MONOCYTES ABSOLUTE AUTO 0.39 K/mm3 (0.16-1.47); MONOCYTES PERCENT AUTO 6 % (4-13); Mean Corpuscular HGB Conc 34.5 g/dL (31.5-36.5); Mean Corpuscular Volume 87 fL (80-100); Mean Platelet Volume 10.5 fL (9.1-12.4); NEUTROPHILS ABSOLUTE AUTO 5.25 K/mm3 (1.96-9.15); NEUTROPHILS PERCENT AUTO 79 % (41-73); Platelet Count 241 K/mm3 (150-400); RDW Coefficient Variation 11.7 % (11.7-14.2); Red Blood Cell Count 4.23 M/mm3 (3.80-5.20); White Blood Cell Count 6.64 K/mm3 (4.00-11.30)
[2024-12-25 05:16] LABS: Albumin, Blood 3.5 g/dL (3.4-5.0); Albumin/Globulin Ratio 1.1 (0.8-1.8); Bilirubin, Total 0.4 mg/dL (0.1-1.0); Calcium, Blood 8.9 mg/dL (8.5-10.1); Globulin, Blood 3.2 g/dL (2.2-4.0); Phosphorus, Blood 4.3 mg/dL (2.5-4.9); Potassium, Blood 3.8 mmol/L (3.5-5.5); Total Protein, Blood 6.7 g/dL (6.4-8.2)
[2024-12-25 07:30] VITALS: BP 138/87
[2024-12-25] MEDS ORDERED: Morphine Sulfate 10 MG/ML 1MLSYR IV PRN (12:05)
[2024-12-25] MEDS ORDERED: Bisacodyl 10 MG Supp PR ONE (12:05)
[2024-12-25] MEDS ORDERED: Potassium Chl 20MEQ/Water100ML 100 ML IV ONE (12:05)
[2024-12-25] MEDS ORDERED: Potassium Chloride 20 MEQ in NS 90 ML IV ONE (12:10)
[2024-12-25] MEDS ORDERED: NS 250 ML IV PRN (12:15)
[2024-12-25] MEDS ORDERED: TPN Consult Notification XX ONE (12:50)
[2024-12-25 13:06] VITALS: BP 139/92
[2024-12-25 16:26] VITALS: BP 116/82
[2024-12-25] MEDS ORDERED: Parenteral Electolytes 40 ML,POTASSIUM PHOS,M-BASIC-D-BASIC 30 MMOL,Multivitamins 10 ML... IV SCH (17:00)
--- NOTE | 2024-12-25 19:23 | NUR ---
SHIFT SUMMARY: PT A&O X4. PLEASANT AND COOPERATIVE. INDEPENDENT IN ROOM. PPN STARTED THIS SHIFT. PT C/O NAUSEA SEVERAL TIMES THIS SHIFT. MEDICATED PER EMAR FOR NAUSEA AND PAIN IN ABDOMEN. PAIN MEDICATION CHANGED TO MORPHINE 2-4MG Q2. PT STATING PAIN MEDS WORKING BETTER THAN FENTANYL. POTASSIUM REPLACED VIA IV. ORDERS ADDED FOR STRICT I&O AND DAILY WEIGHT. Q6 BLOOD SUAGRS TO BE COMPLETED UNTIL STABLE OR CONSISTENT BELOW 180. CALL LIGHT IN REACH. FAMILY AT BEDSIDE.
[2024-12-25 20:27] VITALS: BP 132/90
[2024-12-26] VITALS (7 sets, daily range): BP systolic 110–148; BP diastolic 77–99
[2024-12-26 05:34] LABS: BASOPHILS ABSOLUTE AUTO 0.01 K/mm3 (0.00-0.23); BASOPHILS PERCENT AUTO 0 % (0-2); EOSINOPHILS PERCENT AUTO 0 % (0-6); Hematocrit 38.9 % (33.0-51.0); Hemoglobin 13.4 g/dL (11.5-16.0); IMMATURE GRAN ABSOLUTE AUTO 0.02 K/mm3 (0.00-0.10); IMMATURE GRAN PERCENT AUTO 0 % (0-1); LYMPHOCYTES ABSOLUTE AUTO 1.97 K/mm3 (0.84-5.20); LYMPHOCYTES PERCENT AUTO 23 % (21-46); MONOCYTES ABSOLUTE AUTO 0.57 K/mm3 (0.16-1.47); MONOCYTES PERCENT AUTO 7 % (4-13); Mean Corpuscular HGB 30.1 pg (26.0-34.0); Mean Corpuscular HGB Conc 34.4 g/dL (31.5-36.5); Mean Corpuscular Volume 87 fL (80-100); Mean Platelet Volume 10.5 fL (9.1-12.4); NEUTROPHILS ABSOLUTE AUTO 6.18 K/mm3 (1.96-9.15); NEUTROPHILS PERCENT AUTO 71 % (41-73); Platelet Count 264 K/mm3 (150-400); RDW Coefficient Variation 11.9 % (11.7-14.2); Red Blood Cell Count 4.45 M/mm3 (3.80-5.20); White Blood Cell Count 8.75 K/mm3 (4.00-11.30)
[2024-12-26 06:07] LABS: Alanine Aminotransfer (ALT/SGP 93 U/L (12-78); Albumin, Blood 3.7 g/dL (3.4-5.0); Albumin/Globulin Ratio 1.2 (0.8-1.8); Alk Phos 77 U/L (50-136); Anion Gap 10 mmol/L (3-11); Aspartate Aminotrans (AST/SGOT 21 U/L (12-37); Bilirubin, Total 0.4 mg/dL (0.1-1.0); Blood Urea Nitrogen 12 mg/dL (8-24); Bun/Creatinine Ratio 13.3 (12.0-20.0); CO2, Blood 24 mmol/L (21-32); Calcium, Blood 9.1 mg/dL (8.5-10.1); Chloride, Blood 106 mmol/L (98-108); Globulin, Blood 3.2 g/dL (2.2-4.0); Glomerular Filtration Rate 88 (60-); Glucose, Blood 108 mg/dL (70-99); Magnesium, Blood 2.2 mg/dL (1.6-2.4); Phosphorus, Blood 4.5 mg/dL (2.5-4.9); Sodium, Blood 136 mmol/L (136-145); Total Protein, Blood 6.9 g/dL (6.4-8.2); Triglycerides 94 mg/dL (30-140)
--- NOTE | 2024-12-26 07:43 | NUR ---
AIR CONTROL ELECTRONICS OPERATOR SUMMARY PT IS STILL UNABLE TO EAT AND HAS A VERY DIFFICULT TIME DRINKING FLUIDS. SHE IS ON STRICT I&O AND HER BEST EFFORT OVER 12 HOURS WAS DRINKING 125CC OF FLUIDS. TOLERATING PPN WELL. PT HAD A BOWEL MOVEMENT ON DAY SHIFT. NO EMESIS BUT STILL HAVING SEVERE NAUSEA, VERTIGO, AND PAIN. THIS SHIFT PT HAS HAD IV ZOFRAN, IV SOLUMEDROL, IV REGLAN, IV PROTONIX, IV LORAZEPAM, PO MECLIZINE, PO PHENERGAN, IV BENADRYL AND IV MORPHINE. PTS IV FENTANYL WAS CHANGED TO IV MORPHINE ON DAY SHIFT AND THIS IS WORKING MUCH BETTER FOR HER. AT FIRST, WE WERE CAUTIOUS TO GIVE HER 2MG AND MONITOR HER RESPIRATORY AND SEDATION STATUS BEFORE GIVING HER THE OTHER 2 MG SINCE SHE IS ON SO MANY MEDICATIONS INCLUDING LORAZEPAM AND IV BENADRYL BUT SHE TOLERATED EVERYTHING VERY WELL WITH NO SIGNIFICANT DROWSINESS OR DECLINE IN RESPIRATORY RATE SO WE ARE ALLOWING HER TO HAVE THE FULL 4MG AT A TIME AND THIS HAS HELPED HER PAIN SIGNIFICANTLY AND SHE IS VERY GRATEFUL TO HAVE RELIEF. BOWEL SOUNDS ARE HYPOACTIVE IN ALL 4 QUADRANTS BUT PRESENT. AT BEDSIDE. STRICT I&O COMPLETED.
[2024-12-26] MEDS ORDERED: Sucralfate 1000MG / 10ML UD BTL PO SCH (11:30)
--- NOTE | 2024-12-26 14:38 | NUR ---
PATIENT CALLED AT 1410 STATING SHE WAS HAVING A BURNING PAIN ON THE LEFT, INSIDE OF HER THROAT. COULD FEEL IT STARTING DOWN LOWER IN THROAT AND RADIATED TO BELOW LEFT SIDE OF TONGUE. FELT LIKE SALT IN A CANKER SORE. NO REDNESS OR SWELLING NOTED. NO INCREASED LYMPHNODE EDEMA. STARTED AFTER TAKING FIRST DOSE OF CARAFATE. HAS SINCE SUBSIDED.
--- NOTE | 2024-12-26 19:27 | NUR ---
SHIFT SUMMARY: PT A&O X4. VERY PLEASANT AND COOPERATIVE WITH CARE. PT STATES SHE IS FEELING SLIGHTLY BETTER TODAY. PPN CONTINUING TO INFUSE PER EMAR. POWERGLIDE PLACED D/T PAINFUL IV AND MULTIPLE IV MEDICATIONS. PT STARTED ON CARAFATE THIS SHIFT. PT STATED MEDICATION ALLOWED HER TO EAT SMALL AMOUNT OF LUNCH THEN BEGAN FEELING NAUSEOUS AGAIN. PAIN AND NAUSEA MEDICATIONS PROVIDED PER EMAR. PT C/O BURNING ON INSIDE OF L. SIDE OF THROAT THAT LASTED AROUND 30-[address] CRUZ AWARE. PROVIDER SPOKE WITH PT FOR A PLAN TO COMPLETE A BARIUM SWALLOW WHEN ABLE TO TOLERATE DOSE OF CONTRAST. PLAN TO ADD GI COCKTAIL TO EMAR. CALL LIGHT IN REACH. FAMILY AT BEDSIDE.
[2024-12-26] MEDS ORDERED: Mag Hydrox/Al Hydrox/Simeth 72 ML,Lidocaine 2% Viscous Soln 36 ML,Atropine/Scopalam/Hyo... PO SCH (21:10)
[2024-12-27 04:59] VITALS: BP 126/78
[2024-12-27 05:52] LABS: Magnesium, Blood 2.4 mg/dL (1.6-2.4); Phosphorus, Blood 4.1 mg/dL (2.5-4.9)
[2024-12-27] MEDS ORDERED: Mag Hydrox/Al Hydrox/Simeth 72 ML,Lidocaine 2% Viscous Soln 36 ML,Atropine/Scopalam/Hyo... PO PRN (06:49)
--- NOTE | 2024-12-27 07:18 | NUR ---
CASE PACKER AND SEALER SUMMARY GI COCKTAIL HELPED PT SIGNIFICANTLY AND SHE WAS VERY EXCITED TO FIND SOME RELIEF. AFTER TRYING THE GI COCKTAIL LAST NIGHT SHE WAS ABLE TO EAT AN ENTIRE YOGURT AND AN ENTIRE PUDDING. SHE IS STILL ASKING FOR HER PRN MEDS BUT IS FEELING A BIT BETTER. NO EMESIS OVERNIGHT. PT DOESNT TOLERATE THE CARAFATE. IT CAUSED HER A BURNING SENSATION ON HER FIRST DOSE AND SO REFUSED HER DOSE LAST NIGHT. TPN RUNNING AT 140/HR, PT TOLERATING WELL.
[2024-12-27 07:21] VITALS: BP 125/92
[2024-12-27] MEDS ORDERED: Mag Hydrox/AL Hydrox/Simeth 30 ML UDC PO PRN (09:00)
[2024-12-27] MEDS ORDERED: DiphenhydrAMINE HCl 50 MG/ML 1ML Vial IV PRN (10:30)
[2024-12-27 13:08] VITALS: BP 118/88
[2024-12-27] MEDS ORDERED: TPN Consult Notification XX ONE (13:30)
[2024-12-27 15:21] VITALS: BP 109/79
[2024-12-27] MEDS ORDERED: Parenteral Electolytes 40 ML,Potassium Phosphate Dibasic 30 MM,Multivitamins 10 ML,ZINC... IV SCH (17:00)
--- NOTE | 2024-12-27 18:13 | NUR ---
SHIFT SUMMARY: PT A&O X4. PLEASANT AND COOPERATIVE WITH CARE. NO ACUTE EVENTS THIS SHIFT. PT PROVIDED WITH MAALOX PRIOR TO LUNCH AND DINNER. STILL GETTING PAINFUL AND NAUSEOUS POST MEALS. MEDICATED PER EMAR FOR PAIN AND NAUSEA. INDEPENDENT IN ROOM. NEW BAG TPN INFUSING. TELE IN PLACE RUNNING SINUS RHYTHM. CALL LIGHT IN REACH.
[2024-12-27 20:13] VITALS: BP 111/80
[2024-12-28 00:20] VITALS: BP 118/76
[2024-12-28 04:16] VITALS: BP 122/76
[2024-12-28 07:36] VITALS: BP 125/90
[2024-12-28 07:55] LABS: BASOPHILS ABSOLUTE AUTO 0.03 K/mm3 (0.00-0.23); BASOPHILS PERCENT AUTO 0 % (0-2); EOSINOPHILS ABSOLUTE AUTO 0.02 K/mm3 (0.00-0.68); EOSINOPHILS PERCENT AUTO 0 % (0-6); Hematocrit 43.6 % (33.0-51.0); IMMATURE GRAN ABSOLUTE AUTO 0.09 K/mm3 (0.00-0.10); IMMATURE GRAN PERCENT AUTO 1 % (0-1); LYMPHOCYTES ABSOLUTE AUTO 3.59 K/mm3 (0.84-5.20); LYMPHOCYTES PERCENT AUTO 28 % (21-46); MONOCYTES ABSOLUTE AUTO 1.28 K/mm3 (0.16-1.47); MONOCYTES PERCENT AUTO 10 % (4-13); Mean Corpuscular HGB 30.2 pg (26.0-34.0); Mean Corpuscular HGB Conc 34.4 g/dL (31.5-36.5); Mean Corpuscular Volume 88 fL (80-100); Mean Platelet Volume 10.5 fL (9.1-12.4); NEUTROPHILS ABSOLUTE AUTO 7.67 K/mm3 (1.96-9.15); NEUTROPHILS PERCENT AUTO 61 % (41-73); Platelet Count 322 K/mm3 (150-400); RDW Coefficient Variation 11.8 % (11.7-14.2); RDW Standard Deviation 37.7 fL (35.1-46.3); Red Blood Cell Count 4.97 M/mm3 (3.80-5.20); White Blood Cell Count 12.68 K/mm3 (4.00-11.30)
[2024-12-28 08:16] LABS: Albumin, Blood 3.8 g/dL (3.4-5.0); Bilirubin, Total 0.4 mg/dL (0.1-1.0); Bun/Creatinine Ratio 17.6 (12.0-20.0); Calcium, Blood 9.2 mg/dL (8.5-10.1); Creatinine, Blood 0.91 mg/dL (0.40-1.00); Globulin, Blood 3.7 g/dL (2.2-4.0); Magnesium, Blood 2.3 mg/dL (1.6-2.4); Phosphorus, Blood 3.5 mg/dL (2.5-4.9); Potassium, Blood 3.9 mmol/L (3.5-5.5); Total Protein, Blood 7.5 g/dL (6.4-8.2)
[2024-12-28 11:50] VITALS: BP 135/89
--- NOTE | 2024-12-28 12:44 | NUR ---
GLUCOSE FINGER STICKS DC'd PER ORDER TO STOP IF <180 CONSISTENTLY
[2024-12-28] MEDS ORDERED: Morphine Sulfate 4 MG/1 ML Injection IV PRN (15:15)
[2024-12-28 18:09] VITALS: BP 124/85
[2024-12-28 19:33] VITALS: BP 116/76
[2024-12-29 00:40] LABS: BASOPHILS ABSOLUTE AUTO 0.03 K/mm3 (0.00-0.23); BASOPHILS PERCENT AUTO 0 % (0-2); EOSINOPHILS ABSOLUTE AUTO 0.02 K/mm3 (0.00-0.68); EOSINOPHILS PERCENT AUTO 0 % (0-6); Hematocrit 40.1 % (33.0-51.0); Hemoglobin 14.1 g/dL (11.5-16.0); IMMATURE GRAN PERCENT AUTO 1 % (0-1); LYMPHOCYTES ABSOLUTE AUTO 2.42 K/mm3 (0.84-5.20); LYMPHOCYTES PERCENT AUTO 19 % (21-46); MONOCYTES ABSOLUTE AUTO 1.01 K/mm3 (0.16-1.47); MONOCYTES PERCENT AUTO 8 % (4-13); Mean Corpuscular HGB 30.5 pg (26.0-34.0); Mean Corpuscular HGB Conc 35.2 g/dL (31.5-36.5); Mean Corpuscular Volume 87 fL (80-100); Mean Platelet Volume 10.9 fL (9.1-12.4); NEUTROPHILS ABSOLUTE AUTO 9.49 K/mm3 (1.96-9.15); NEUTROPHILS PERCENT AUTO 73 % (41-73); Platelet Count 292 K/mm3 (150-400); RDW Coefficient Variation 11.9 % (11.7-14.2); RDW Standard Deviation 37.4 fL (35.1-46.3); Red Blood Cell Count 4.62 M/mm3 (3.80-5.20); White Blood Cell Count 13.07 K/mm3 (4.00-11.30)
[2024-12-29 00:58] LABS: Albumin, Blood 3.7 g/dL (3.4-5.0); Albumin/Globulin Ratio 1.1 (0.8-1.8); Bilirubin, Total 0.3 mg/dL (0.1-1.0); Bun/Creatinine Ratio 20.2 (12.0-20.0); Calcium, Blood 8.9 mg/dL (8.5-10.1); Creatinine, Blood 0.84 mg/dL (0.40-1.00); Globulin, Blood 3.3 g/dL (2.2-4.0); Potassium, Blood 4.4 mmol/L (3.5-5.5)
[2024-12-29 05:25] VITALS: BP 112/72
--- NOTE | 2024-12-29 05:39 | NUR ---
CASH APPLICATION REPRESENTATIVE SUMMARY PRIOR TO BECOMING NPO AT MIDNIGHT, PT NOTED AN INCREASE IN HER ABILITY TO EAT AND DRINK. SHE WAS ABLE TO EAT SOME SOUP AND SOME YOGURT AND HAD 2 "NAKED JUICES". THIS IS A SIGNIFICANT IMPROVEMENT AND PT IS FEELING EXCITED TO SEE SOME CHANGE. SHE IS STILL ASKING FOR PRN MEDICATIONS AND FEELS HER SYMPTOMS RETURN IF SHE DOESNT TAKE HER MEDICATIONS. SHE IS HAPPY THAT SHE WILL BE GETTING AN EGD TODAY BECAUSE SHE IS HOPING TO FIND A REASON FOR HER SYMPTOMS.
[2024-12-29 07:25] VITALS: BP 127/86
--- NOTE | 2024-12-29 10:25 | NUR ---
ASSUMED CARE OF PATIENT. AWAKE DURING SHIFT-CHANGE REPORT. PPN VIA PIV FRANKI. NO C/O PAIN OR NAUSEA AT THE TIME. PAIN AND NAUSEA MEDS GIVEN AN HOUR PRIOR TO SHIFT CHANGE. MOTHER ASLEEP IN CHAIR. BED IN LOWEST POSITION. CALL LIGHT WITHIN REACH. NO ACUTE NEEDS.
[2024-12-29] MEDS ORDERED: LORazepam 2 MG/ML 1ML Injection IV PRN (11:10)
[2024-12-29] MEDS ORDERED: Lactated Ringer's 1,000 ML IV SCH (12:15)
--- NOTE | 2024-12-29 12:18 | NUR ---
CALL FROM FREDDY IN [facility]. PATIENT WILL BE GOING FOR EGD IN ABOUT 15 MINUTES. DISCONNECTED FROM PPN AND SALINE LOCKED; PHARMACY NOTIFIED AND WILL CHECK WITH THIS RN BEFORE MAKING NEW BAG OF PPN. JEWELRY REMOVED. VOIDED AND CHANGED INTO [facility]OSPITAL [facility]. AND DAUGHTER IN TO VISIT.
--- NOTE | 2024-12-29 12:48 | NUR ---
PATIENT TO [facility] FOR EGD.
[2024-12-29 12:49] VITALS: BP 133/85
[2024-12-29] MEDS ORDERED: Benzocaine Oral Spray 0.5ML UD ONE (13:13)
[2024-12-29] MEDS ORDERED: propofoL 40 ML IV ONE (13:13)
--- NOTE | 2024-12-29 13:31 | NUR ---
12/29/24 [address] BANERJEE; SEE ANESTHESIA RECORDS.
--- NOTE | 2024-12-29 14:22 | NUR ---
POST PROCEDURE, PT'S EXHIBITED UNILATERAL FACIAL FLUSHING ON THE LEFT SIDE, WITH MILD INFLAMMATION. PT DENIES ANY DISCOMFORT, ITCHING, ETC, BESIDES SLIGHTLY BLURRED VISION IN LEFT EYE. PT DENIES EXPERIENCING ANYTHING SIMILAR IN THE PAST. ANESTHESIOLOGIST NOTIFIED. PT TX BACK TO MEDICAL FLOOR VIA GURNEY. REDNESS FADING, BUT STILL VISUAL UPON ARRIVAL TO MEDICAL FLOOR.
--- NOTE | 2024-12-29 15:02 | NUR ---
UPON RETURNING TO MEDICAL FLOOR FROM PACU, PACU NURSE, BRIGITTE, NOTIFIED THIS RN THAT PT HAD BEEN NOTED TO HAVE RASH, WAS TAKEN BACK TO PACU AND CLEARED BY SURGEON AND ANESTHESIOLOGIST: PT NOTED TO HAVE MACULAR RASH TO LEFT SIDE OF FACE, ONLY. RED AREAS ABRUPTLY STOPPED MID-FACE, WITH A CLEAR LINE DOWN FOREHEAD, SEPTUM AND LIPS. CIRCUMVENTING LEFT EYE SWOLLEN WITH MACULAR RASH SCATTERED THROUGHOUT LEFT SIDE OF FACE, ONLY. PT DENIED C/O PARESTHESIA, PAIN OR PURITIS.
--- NOTE | 2024-12-29 15:11 | NUR ---
PER DAVID LABOY TO RESUME FULL LIQUID DIET TOLERATED.
[2024-12-29 16:10] VITALS: BP 121/91
--- NOTE | 2024-12-29 18:21 | NUR ---
END OF SHIFT SUMMARY: A&Ox4. PLEASANT AND COOPERATIVE WITH CARE. CALLS APPROPRIATELY AND IS ABLE TO ADVOCATE NEEDS EFFECTIVELY. AMBULATES INDEPENDENTLY. CONTINENT x2. EGD c Bx x3 SITES. ADVANCE DIET TOLERATED AFTER PROCEDURE; ABLE TO FINISH A 16oz SMOOTHIE AFTER PROCEDURE AFTER RECEIVING A GI COCKTAIL, WHICH SHE REPORTS WORKS BEST FOR EPIGASTRIC PAIN/BURNING/STABBING. MEDS WHOLE c FLUIDS. ROOM AIR. NO TELE. PPN RUNNING, THOUGH INFILTRATED OF WRITING THIS. WILL PLACE NEW IV. BED IN LOWEST POSITION, CALL LIGHT WITHIN REACH, ALL NEEDS MET. REPORT TO ONCOMING NURSE.
[2024-12-29 19:55] VITALS: BP 127/84
[2024-12-30 05:26] VITALS: BP 113/84
[2024-12-30 05:59] LABS: Bun/Creatinine Ratio 25.4 (12.0-20.0); Calcium, Blood 8.8 mg/dL (8.5-10.1); Creatinine, Blood 0.95 mg/dL (0.40-1.00)
[2024-12-30] MEDS ORDERED: Pantoprazole Sodium 40 MG Injection IV SCH (06:00)
--- NOTE | 2024-12-30 07:15 | NUR ---
BEEF CATTLE FARM MANAGER SUMMARY PT STILL EXPERIENCING NAUSEA AND ABDOMINAL PAIN. SHE IS HOPING TO HEAR RESULTS OF HER EGD TODAY FROM THE DOCTOR AND HOPING FOR ANSWERS.
[2024-12-30 07:18] VITALS: BP 130/77
[2024-12-30] MEDS ORDERED: Morphine Sulfate 4 MG/1 ML Injection IV PRN (12:05)
[2024-12-30] MEDS ORDERED: LORazepam 0.5 MG Tab PO PRN (12:05)
[2024-12-30] MEDS ORDERED: HYDROcodone 5-APAP 325 TAB PO PRN (12:05)
--- NOTE | 2024-12-30 18:03 | NUR ---
SHIFT SUMMARY: PT A&O X4. PLEASANT AND COOPERATIVE WITH CARE. SMALL BOWEL FOLLOW THROUGH COMPLETED THIS SHIFT. TPN DISCONTINUED THIS SHIFT. IV PAIN AND NAUSEA MEDICATIONS PROVIDED PER EMAR. PT STILL ONLY ABLE TO TAKE MINIMAL AMOUNT OF FOOD IN. CALL LIGHT IN REACH. BED IN LOWEST POSITION.
[2024-12-30 19:39] VITALS: BP 109/78
[2024-12-30] MEDS ORDERED: Mirtazapine 15 MG SoluTab PO SCH (21:00)
[2024-12-31 02:29] VITALS: BP 109/70
--- NOTE | 2024-12-31 05:01 | NUR ---
SHIFT SUMMARY MURIEL WAS ALERT AND FULLY ORIENTED ON ASSESSMENT, WITH MOTHER AT BEDSIDE. NO NEW DEVELOPMENTS THIS SHIFT, PT MEDICATED FOR EPIGASTRIC PAIN AND NAUSEA PRN, AND SLEPT T/O MOST OF THE NIGHT. PT SHOWERED AT START OF SHIFT.
[2024-12-31 07:10] VITALS: BP 136/84
--- NOTE | 2024-12-31 17:49 | NUR ---
SHIFT SSUMMARY: PT A&O X4. NO ACUTE CHANGES THIS SHIFT. PT STILL C/O PAIN AND NAUSEA. MEDICATED PER EMAR FOR ABOVE COMPLAINTS. PT INDEPENDENT IN ROOM. DR. HERNANDEZ CONSULTED THIS SHIFT AND CURRENTLY IN ROOM WITH PT. CALL LIGHT IN REACH. BED IN LOWEST POSITION.
[2024-12-31 20:05] VITALS: BP 121/82
[2025-01-01 03:51] VITALS: BP 114/77
[2025-01-01 04:12] LABS: BASOPHILS ABSOLUTE AUTO 0.05 K/mm3 (0.00-0.23); BASOPHILS PERCENT AUTO 1 % (0-2); EOSINOPHILS ABSOLUTE AUTO 0.23 K/mm3 (0.00-0.68); EOSINOPHILS PERCENT AUTO 3 % (0-6); Hematocrit 42.9 % (33.0-51.0); Hemoglobin 14.4 g/dL (11.5-16.0); IMMATURE GRAN ABSOLUTE AUTO 0.04 K/mm3 (0.00-0.10); IMMATURE GRAN PERCENT AUTO 1 % (0-1); LYMPHOCYTES ABSOLUTE AUTO 3.62 K/mm3 (0.84-5.20); LYMPHOCYTES PERCENT AUTO 45 % (21-46); MONOCYTES ABSOLUTE AUTO 0.67 K/mm3 (0.16-1.47); MONOCYTES PERCENT AUTO 8 % (4-13); Mean Corpuscular HGB 29.5 pg (26.0-34.0); Mean Corpuscular HGB Conc 33.6 g/dL (31.5-36.5); Mean Corpuscular Volume 88 fL (80-100); Mean Platelet Volume 10.7 fL (9.1-12.4); NEUTROPHILS ABSOLUTE AUTO 3.49 K/mm3 (1.96-9.15); NEUTROPHILS PERCENT AUTO 43 % (41-73); Platelet Count 313 K/mm3 (150-400); RDW Coefficient Variation 11.9 % (11.7-14.2); RDW Standard Deviation 38.2 fL (35.1-46.3); Red Blood Cell Count 4.88 M/mm3 (3.80-5.20)
[2025-01-01 04:47] LABS: Albumin, Blood 3.6 g/dL (3.4-5.0); Albumin/Globulin Ratio 1.1 (0.8-1.8); Bilirubin, Total 0.5 mg/dL (0.1-1.0); Bun/Creatinine Ratio 14.2 (12.0-20.0); Calcium, Blood 9.3 mg/dL (8.5-10.1); Creatinine, Blood 1.2 mg/dL (0.40-1.00); Globulin, Blood 3.2 g/dL (2.2-4.0); Potassium, Blood 4.2 mmol/L (3.5-5.5); Total Protein, Blood 6.8 g/dL (6.4-8.2)
--- NOTE | 2025-01-01 05:25 | NUR ---
PT A&OX4, INDEPENDENT IN RM, C/O NAUSEA AND PAIN THROUGHT SHIFT. MEDICATED PRESCRIBED. NO ACUTE CHANGES NOTED THIS SHIFT.
[2025-01-01 07:36] VITALS: BP 126/86
[2025-01-01 14:33] VITALS: BP 123/83
[2025-01-01] MEDS ORDERED: Magnesium Hydroxide Conc 10 ML UDC PO PRN (14:40)
[2025-01-01] MEDS ORDERED: Bisacodyl 10 MG Supp PR ONE (14:40)
--- NOTE | 2025-01-01 16:10 | NUR ---
Met with pt at bedside. We talked about kids, and she shared regarding her recent foster son who ended up being reunited with his biological father. She states she had already cared for and ended up adopting the older sister, and was called to foster this baby when he was a . However, when the baby was 10 months old, he was returned to his biological father. Pablo states she noticed this was the same time she began having severe stomach pains, and even now, notices the pain worsens when she discusses him. We discussed stress relieving techniques, and guided imagery. She became tearful, states she does feel better talking through things, and is thinking about therapy to help with the grieving process.
[2025-01-01 18:12] VITALS: BP 118/85
--- NOTE | 2025-01-01 19:28 | NUR ---
SHIFT SUMMARY PATIENT ALERT AND INTERACTIVE. PATIENT INDEPENDENT IN THE ROOM. PATIENT CONTINUES TO BE TEARFUL AT TIMES AND TALKING ABOUT RECENT EVENT OF NOT BEING ABLE TO ADOPT A CHILD THAT SHE FOSTERED. PATIENT REQUIRING FREQUENT MEDICATIONS FOR PAIN AND NAUSEA. PROVIDED EDUCATION RELATED TO GASTRIOPERESIS. ENCOURAGED PATIENT TO CONTINUE TO WORK WITH OUTPATIENT THERAPY RELATED TO HER EMOTIONAL TRAUMA. DISCUSSED HOW EMOTIONS CAN AFFECT NAUSEA.
[2025-01-01 19:36] VITALS: BP 126/83
[2025-01-02 02:38] VITALS: BP 125/82
--- NOTE | 2025-01-02 04:52 | NUR ---
PATIENT REQUIRING FREQUENT MEDICATION FOR PAIN AND NAUSEA T/O SHIFT. HAS BEEN [facility]END[facility]. PT HAS HAD INCREASED LIQUIDS T/O SHIFT.
[2025-01-02 05:45] LABS: Triglycerides 152 mg/dL (30-140)
[2025-01-02 07:36] VITALS: BP 120/87
[2025-01-02] MEDS ORDERED: Venlafaxine HC150 MG PO (12:47)
[2025-01-02] MEDS ORDERED: BUSP10 PO (12:48)
[2025-01-02] MEDS ORDERED: Acetaminophen325 M1 PO (12:48)
[2025-01-02] MEDS ORDERED: ZEBUTAL 50-3251 EAC1 PO (12:50)
[2025-01-02] MEDS ORDERED: FT SENNA-S 8.61 EACH PO (12:51)
[2025-01-02] MEDS ORDERED: HYDR1TAB94 PO (12:52)
[2025-01-02] MEDS ORDERED: LORA.5 PO (12:53)
[2025-01-02] MEDS ORDERED: MIRT15ST PO (12:54)
[2025-01-02] MEDS ORDERED: MECL25 PO (12:54)
[2025-01-02] MEDS ORDERED: PHENERGAN25 MG PR (12:55)
[2025-01-02] MEDS ORDERED: PROM25 PO (12:56)
[2025-01-02] MEDS ORDERED: PANT40 PO (12:57)
[2025-01-02] MEDS ORDERED: ONDA4ODT MM (15:20)
[2025-01-02] MEDS ORDERED: METO10SY PO (15:22)
--- NOTE | 2025-01-02 15:30 | NUR ---
SHIFT SUMMARY AND DISCHARGE PATIENT ALERT AND INTERACTIVE. PATIENT AMBULATING INDEPENDENTLY IN THE ROOM. PATIENT CONTINUES TO HAVE NAUSEA, HEADACHE AND DIZZINESS. PATIENT MEDICATED PER MAR. DISCHARGE ORDERS PLACED. DISCHARGE INSTRUCTIONS REVIEWED WITH PATIENT AND MOTHER. POWERGLIDE REMOVED. MOTHER TOOK PATIENT OUT VIA WHEELCHAIR.
== END 2025-01-02 15:55 | disposition home or self-care (01) | DRG 392 ==
LOC: ER 13:32 → MEDS 13:33 → ENPENDDIS 01-02 15:04 → MEDS 01-02 15:55
PROVIDERS: Family Medicine; Hospitalist; Internal Medicine; Nurse Practitioner Acute Care; Student in an Organized Health Care Education/Training Program; Surgery; ADMIT Internal Medicine
PROC: 0DB48ZX Excision of Esophagogastric Junction, Via Natural or Artificial Opening Endoscopic, Diagnostic (ICD-10-PCS; 2024-12-29)
PROC: 0DB68ZX Excision of Stomach, Via Natural or Artificial Opening Endoscopic, Diagnostic (ICD-10-PCS; principal; 2024-12-29 13:15)
DX: R11.2 Nausea with vomiting, unspecified (principal); E22.1 Hyperprolactinemia; E87.20 Acidosis, unspecified; K29.70 Gastritis, unspecified, without bleeding; R42 Dizziness and giddiness; N80.00 Endometriosis of the uterus, unspecified; F41.1 Generalized anxiety disorder; F32.9 Major depressive disorder, single episode, unspecified; F43.10 Post-traumatic stress disorder, unspecified; R73.9 Hyperglycemia, unspecified; D72.829 Elevated white blood cell count, unspecified; G40.909 Epilepsy, unspecified, not intractable, without status epilepticus; G43.909 Migraine, unspecified, not intractable, without status migrainosus; K21.9 Gastro-esophageal reflux disease without esophagitis; F12.10 Cannabis abuse, uncomplicated; E86.0 Dehydration; T45.0X5A Adverse effect of antiallergic and antiemetic drugs, initial encounter; T43.205A Adverse effect of unspecified antidepressants, initial encounter; K59.00 Constipation, unspecified; E16.2 Hypoglycemia, unspecified; Z88.0 Allergy status to penicillin; Z88.2 Allergy status to sulfonamides
CPT/HCPCS: 0241U; 36415; 70450; 70496; 70498; 74177; 74250; 76705; 80048; 80053; 80069; 81001; 81025; 82150; 82330; 82803; 82947; 83690; 83735; 83880; 84100; 84146; 84478; 84703; 85025; 85651; 86140; 88305; 88341; 88342; 93005; 93010; 96361; 96374; 96375; 96376; 99285-25; A9270; C1751; G0378; J1200; J1885; J2060; J2270; J2405; J2470; J2704; J2765; J2919; J3010; J3411; J3480; J7030; J7042; J7050; J7070; J7120; Q9967

== ENCOUNTER → 2025-01-03 | Outpatient (CLI) | payer OTHER ==
[~2025-01-03] MED LIST changes: +Acetaminophen325 M1 PO; +BUSP10 PO; +DESV50 PO; +ESCI20 PO; +FT SENNA-S 8.61 EACH PO; +HYDR1TAB94 PO; +LORA.5 PO; +MECL25 PO; +METO10SY PO; +MIRT15ST PO; +ONDA4ODT MM; +PANT40 PO; +PHENERGAN25 MG PR; +TOPI25 PO; +Venlafaxine HC150 MG PO; +ZEBUTAL 50-3251 EAC1 PO
[2025-01-03 12:22] LABS: BASOPHILS ABSOLUTE AUTO 0.03 K/mm3 (0.00-0.23); BASOPHILS PERCENT AUTO 0 % (0-2); EOSINOPHILS ABSOLUTE AUTO 0.03 K/mm3 (0.00-0.68); EOSINOPHILS PERCENT AUTO 0 % (0-6); Hematocrit 43.2 % (33.0-51.0); Hemoglobin 14.8 g/dL (11.5-16.0); IMMATURE GRAN ABSOLUTE AUTO 0.02 K/mm3 (0.00-0.10); IMMATURE GRAN PERCENT AUTO 0 % (0-1); LYMPHOCYTES ABSOLUTE AUTO 1.59 K/mm3 (0.84-5.20); LYMPHOCYTES PERCENT AUTO 17 % (21-46); MONOCYTES ABSOLUTE AUTO 1.11 K/mm3 (0.16-1.47); MONOCYTES PERCENT AUTO 12 % (4-13); Mean Corpuscular HGB Conc 34.3 g/dL (31.5-36.5); Mean Corpuscular Volume 88 fL (80-100); Mean Platelet Volume 10.3 fL (9.1-12.4); NEUTROPHILS ABSOLUTE AUTO 6.64 K/mm3 (1.96-9.15); NEUTROPHILS PERCENT AUTO 71 % (41-73); Platelet Count 283 K/mm3 (150-400); RDW Coefficient Variation 11.9 % (11.7-14.2); RDW Standard Deviation 38.5 fL (35.1-46.3); Red Blood Cell Count 4.93 M/mm3 (3.80-5.20); White Blood Cell Count 9.42 K/mm3 (4.00-11.30)
[2025-01-03 12:30] LABS: Albumin, Blood 3.6 g/dL (3.4-5.0); Anion Gap 12 mmol/L (3-11); Blood Urea Nitrogen 8 mg/dL (8-24); Bun/Creatinine Ratio 6.7 (12.0-20.0); CO2, Blood 29 mmol/L (21-32); Chloride, Blood 100 mmol/L (98-108); Creatinine, Blood 1.19 mg/dL (0.40-1.00); Glomerular Filtration Rate 63 (60-); Glucose, Blood 110 mg/dL (70-99); Phosphorus, Blood 3.2 mg/dL (2.5-4.9); Sodium, Blood 137 mmol/L (136-145)
== END ==
LOC: LAB SHORT 12:18 → LAB 12:18
PROVIDERS: Family Medicine
DX: R10.9 Unspecified abdominal pain (principal); N39.0 Urinary tract infection, site not specified
CPT/HCPCS: 80069; 85025; 87077; 87086; 87186

== ENCOUNTER 2025-02-20 18:07 | Emergency (ER) | payer OTHER ==
[~2025-02-20] VITALS: Ht 160 cm; Wt 76.2 kg
[2025-02-20 18:40] LABS: BASOPHILS ABSOLUTE AUTO 0.05 K/mm3 (0.00-0.23); BASOPHILS PERCENT AUTO 1 % (0-2); EOSINOPHILS ABSOLUTE AUTO 0.06 K/mm3 (0.00-0.68); EOSINOPHILS PERCENT AUTO 1 % (0-6); Hematocrit 39.3 % (33.0-51.0); Hemoglobin 13.3 g/dL (11.5-16.0); IMMATURE GRAN ABSOLUTE AUTO 0.01 K/mm3 (0.00-0.10); IMMATURE GRAN PERCENT AUTO 0 % (0-1); LYMPHOCYTES ABSOLUTE AUTO 2.97 K/mm3 (0.84-5.20); LYMPHOCYTES PERCENT AUTO 42 % (21-46); MONOCYTES ABSOLUTE AUTO 0.64 K/mm3 (0.16-1.47); MONOCYTES PERCENT AUTO 9 % (4-13); Mean Corpuscular HGB 30.2 pg (26.0-34.0); Mean Corpuscular HGB Conc 33.8 g/dL (31.5-36.5); Mean Corpuscular Volume 89 fL (80-100); Mean Platelet Volume 9.9 fL (9.1-12.4); NEUTROPHILS ABSOLUTE AUTO 3.41 K/mm3 (1.96-9.15); NEUTROPHILS PERCENT AUTO 48 % (41-73); Platelet Count 318 K/mm3 (150-400); RDW Coefficient Variation 12.2 % (11.7-14.2); RDW Standard Deviation 39.9 fL (35.1-46.3); Red Blood Cell Count 4.41 M/mm3 (3.80-5.20); White Blood Cell Count 7.14 K/mm3 (4.00-11.30)
[2025-02-20 18:53] LABS: Albumin, Blood 3.8 g/dL (3.4-5.0); Albumin/Globulin Ratio 1.1 (0.8-1.8); Bilirubin, Total 0.1 mg/dL (0.1-1.0); Bun/Creatinine Ratio 13.8 (12.0-20.0); Calcium, Blood 9.6 mg/dL (8.5-10.1); Creatinine, Blood 0.72 mg/dL (0.40-1.00); Globulin, Blood 3.4 g/dL (2.2-4.0); Potassium, Blood 3.7 mmol/L (3.5-5.5); Total Protein, Blood 7.2 g/dL (6.4-8.2)
[2025-02-20] MEDS ORDERED: NS 1,000 ML IV SCH (19:30)
[2025-02-20] MEDS ORDERED: Ondansetron HCl 2 MG / ML 2ML Vial IV ONE (19:40)
[2025-02-20 19:46] LABS: Source, Urine Clean Catch
[2025-02-20 19:49] LABS: Appearance, Urine Hazy (Clear); Bilirubin, Urine Neg (Neg); Blood, Urine Neg (Neg); Color, Urine Yellow (P-Yellow); Glucose Qualitative, Urine Neg (Neg); Ketones, Urine Neg (Neg); Leukocyte Esterase, Urine 2+ (Neg); Nitrite, Urine Neg (Neg); Protein, Urine Neg (Neg); Specific Gravity, Urine 1.015 (1.003-1.022); Urobilinogen, Urine NORM (Normal)
[2025-02-20 19:56] LABS: Amorphous Light (0-Heavy); Bacteria Few /hpf; Red Blood Cells, Urine 0-2 /hpf (0-2); Squamous Epithelial Cells Many /hpf (Few)
[2025-02-20 20:00] LABS: U Amphetamine Screen Not Detected; U Barbituate Screen DETECTED; U Benzodiazapine Screen Not Detected; U Buprenorphine Screen Not Detected; U Cannabinoids Screen Not Detected; U Cocaine Screen Not Detected; U Methadone Screen Not Detected; U Methamphetamine Screen Not Detected; U Opiates Screen Not Detected; U Oxycodone Screen Not Detected; U Phencyclidine Screen Not Detected
[2025-02-20 20:15] LABS: Free Thyroxine 0.87 ng/dL (0.70-1.60); Magnesium, Blood 1.7 mg/dL (1.6-2.4)
[2025-02-20 20:17] LABS: Thyroid Stimulating Hormone 2.35 uIU/mL (0.360-4.800)
[2025-02-20 20:43] VITALS: BP 131/89
[2025-02-25] MEDS ORDERED: NITR100CA PO (11:33)
== END 2025-02-20 21:09 | disposition home or self-care (01) ==
LOC: ER 18:07
PROVIDERS: Emergency Medicine; Student in an Organized Health Care Education/Training Program
DX: R00.2 Palpitations (principal); K21.9 Gastro-esophageal reflux disease without esophagitis; G43.909 Migraine, unspecified, not intractable, without status migrainosus; Z79.899 Other long term (current) drug therapy; Z88.0 Allergy status to penicillin; Z88.2 Allergy status to sulfonamides; Z91.048 Other nonmedicinal substance allergy status
CPT/HCPCS: 71046; 80053; 81001; 83735; 83880; 84439; 84443; 84484; 85025; 85379; 87077; 87086; 87186; 93005; 93010; 96361; 96374; 99285-25; J2405; J7030

== ENCOUNTER 2025-05-22 14:35 | Emergency (ER) | payer OTHER ==
[~2025-05-22] VITALS: Ht 157.5 cm; Wt 73.5 kg
[~2025-05-22 14:35] MED LIST changes: +NITR100CA PO
[2025-05-22] MEDS ORDERED: METO25 PO (14:55)
[2025-05-22 15:12] LABS: BASOPHILS ABSOLUTE AUTO 0.03 K/mm3 (0.00-0.23); BASOPHILS PERCENT AUTO 1 % (0-2); EOSINOPHILS ABSOLUTE AUTO 0.07 K/mm3 (0.00-0.68); EOSINOPHILS PERCENT AUTO 1 % (0-6); Hematocrit 43.9 % (33.0-51.0); Hemoglobin 15.3 g/dL (11.5-16.0); IMMATURE GRAN ABSOLUTE AUTO 0.00 K/mm3 (0.00-0.10); IMMATURE GRAN PERCENT AUTO 0 % (0-1); LYMPHOCYTES ABSOLUTE AUTO 2.28 K/mm3 (0.84-5.20); LYMPHOCYTES PERCENT AUTO 44 % (21-46); MONOCYTES ABSOLUTE AUTO 0.42 K/mm3 (0.16-1.47); MONOCYTES PERCENT AUTO 8 % (4-13); Mean Corpuscular HGB Conc 34.9 g/dL (31.5-36.5); Mean Corpuscular Volume 85 fL (80-100); NEUTROPHILS ABSOLUTE AUTO 2.44 K/mm3 (1.96-9.15); NEUTROPHILS PERCENT AUTO 47 % (41-73); NRBC ABSOLUTE 0.00 K/mm3 (0.00-0.02); NRBC Auto 0.0 /100 WBC (0.0-0.2); Platelet Count 226 K/mm3 (150-400); RDW Coefficient Variation 11.7 % (11.7-14.2); RDW Standard Deviation 35.8 fL (35.1-46.3)
[2025-05-22] MEDS ORDERED: NS 1,000 ML IV SCH (15:35)
[2025-05-22 15:43] LABS: Alanine Aminotransfer (ALT/SGP 26.0 U/L (12-78); Albumin, Blood 3.6 g/dL (3.4-5.0); Albumin/Globulin Ratio 0.9 (0.8-1.8); Anion Gap 10.0 mmol/L (3-11); Aspartate Aminotrans (AST/SGOT 18.0 U/L (12-37); Bilirubin, Total 0.5 mg/dL (0.1-1.0); Blood Urea Nitrogen 9.0 mg/dL (8-24); CO2, Blood 21.0 mmol/L (21-32); Calcium, Blood 9.0 mg/dL (8.5-10.1); Chloride, Blood 109.0 mmol/L (98-108); Creatinine, Blood 0.89 mg/dL (0.40-1.00); Globulin, Blood 3.8 g/dL (2.2-4.0); Glucose, Blood 85.0 mg/dL (70-99); Potassium, Blood 3.8 mmol/L (3.5-5.5); Sodium, Blood 136.0 mmol/L (136-145); Total Protein, Blood 7.4 g/dL (6.4-8.2)
[2025-05-22] MEDS ORDERED: Lidocaine 2% Viscous Soln 15 ML UDC PO ONE (16:10)
[2025-05-22 17:59] LABS: Source, Urine Clean Catch
[2025-05-22 18:06] LABS: Bilirubin, Urine Neg (Neg); Color, Urine Yellow (P-Yellow); Glucose Qualitative, Urine Neg (Neg); Ketones, Urine 1+ (Neg); Leukocyte Esterase, Urine 3+ (Neg); Protein, Urine 2+ (Neg); Specific Gravity, Urine 1.010 (1.003-1.022); Urobilinogen, Urine NORM (Normal)
[2025-05-22] MEDS ORDERED: Morphine Sulfate 4 MG/1 ML Injection IV ONE (18:20)
[2025-05-22 18:38] LABS: White Blood Cells, Urine 25-50 /hpf (0-5)
[2025-05-22 19:15] VITALS: BP 112/80
== END 2025-05-22 19:25 | disposition home or self-care (01) ==
LOC: ER 14:35
PROVIDERS: Emergency Medicine; Student in an Organized Health Care Education/Training Program
DX: R42 Dizziness and giddiness (principal); R00.0 Tachycardia, unspecified; R10.13 Epigastric pain; K21.9 Gastro-esophageal reflux disease without esophagitis; Z79.899 Other long term (current) drug therapy; Z88.0 Allergy status to penicillin; Z88.2 Allergy status to sulfonamides; Z88.8 Allergy status to other drugs, medicaments and biological substances
CPT/HCPCS: 71045; 74177; 80053; 81001; 81025; 83690; 84484; 85025; 93005; 93010; A9270; J2270; J7030; Q9967

== ENCOUNTER 2025-07-17 17:19 | Emergency (ER) | payer OTHER ==
[~2025-07-17] VITALS: Ht 157.5 cm; Wt 72.6 kg
[~2025-07-17 17:19] MED LIST changes: +METO25 PO
[2025-07-17] MEDS ORDERED: Ketorolac Tromethamine 15mg Vial IV ONE (17:35)
[2025-07-17] MEDS ORDERED: Ondansetron HCl 2 MG / ML 2ML Vial IV ONE ×3 (17:35→22:50)
[2025-07-17 17:51] LABS: BASOPHILS ABSOLUTE AUTO 0.04 K/mm3 (0.00-0.23); BASOPHILS PERCENT AUTO 1 % (0-2); EOSINOPHILS ABSOLUTE AUTO 0.17 K/mm3 (0.00-0.68); EOSINOPHILS PERCENT AUTO 2 % (0-6); Hematocrit 39.0 % (33.0-51.0); Hemoglobin 13.4 g/dL (11.5-16.0); IMMATURE GRAN ABSOLUTE AUTO 0.01 K/mm3 (0.00-0.10); IMMATURE GRAN PERCENT AUTO 0 % (0-1); LYMPHOCYTES ABSOLUTE AUTO 3.64 K/mm3 (0.84-5.20); LYMPHOCYTES PERCENT AUTO 50 % (21-46); MONOCYTES ABSOLUTE AUTO 0.64 K/mm3 (0.16-1.47); MONOCYTES PERCENT AUTO 9 % (4-13); Mean Corpuscular HGB Conc 34.4 g/dL (31.5-36.5); Mean Corpuscular Volume 87 fL (80-100); NEUTROPHILS ABSOLUTE AUTO 2.77 K/mm3 (1.96-9.15); NEUTROPHILS PERCENT AUTO 38 % (41-73); NRBC ABSOLUTE 0.00 K/mm3 (0.00-0.02); NRBC Auto 0.0 /100 WBC (0.0-0.2); Platelet Count 274 K/mm3 (150-400); RDW Coefficient Variation 12.7 % (11.7-14.2); RDW Standard Deviation 40.0 fL (35.1-46.3)
[2025-07-17 18:15] LABS: Alanine Aminotransfer (ALT/SGP 28.0 U/L (12-78); Albumin, Blood 3.6 g/dL (3.4-5.0); Albumin/Globulin Ratio 1.1 (0.8-1.8); Anion Gap 10.0 mmol/L (3-11); Aspartate Aminotrans (AST/SGOT 25.0 U/L (12-37); Bilirubin, Total 0.3 mg/dL (0.1-1.0); Blood Urea Nitrogen 5.0 mg/dL (8-24); CO2, Blood 24.0 mmol/L (21-32); Calcium, Blood 8.9 mg/dL (8.5-10.1); Chloride, Blood 109.0 mmol/L (98-108); Creatinine, Blood 0.9 mg/dL (0.40-1.00); Globulin, Blood 3.4 g/dL (2.2-4.0); Glucose, Blood 51.0 mg/dL (70-99); Potassium, Blood 3.2 mmol/L (3.5-5.5); Sodium, Blood 140.0 mmol/L (136-145); Total Protein, Blood 7.0 g/dL (6.4-8.2)
[2025-07-17] MEDS ORDERED: Potassium Chl 20MEQ/Water100ML 100 ML IV ONE (21:00)
[2025-07-17] MEDS ORDERED: NS 1,000 ML IV SCH (21:05)
[2025-07-17] MEDS ORDERED: Pantoprazole Sodium 40 MG Injection IV ONE (21:05)
[2025-07-17 21:30] LABS: Ethanol (Alcohol), Blood, Med 32.0 mg/dL
[2025-07-17] MEDS ORDERED: FentaNYL Citrate 50 MCG/ML 2 ML Injection IV ONE (22:50)
[2025-07-18 00:13] LABS: Glucose, Blood 115 mg/dL (70-99)
[2025-07-18] MEDS ORDERED: ONDA4ODT MM (01:12)
[2025-07-18] MEDS ORDERED: PANT40 PO (01:12)
[2025-07-18 01:36] VITALS: BP 130/75
[2025-07-20 00:11] LABS: SERUM, C-PEPTIDE 3.6 ng/mL (0.5-3.3)
== END 2025-07-18 01:38 | disposition home or self-care (01) ==
LOC: ER 17:19
PROVIDERS: Emergency Medicine; Student in an Organized Health Care Education/Training Program
DX: R10.13 Epigastric pain (principal); R11.0 Nausea; E16.2 Hypoglycemia, unspecified; E87.6 Hypokalemia; J45.909 Unspecified asthma, uncomplicated; Z87.442 Personal history of urinary calculi; F10.90 Alcohol use, unspecified, uncomplicated; Z88.0 Allergy status to penicillin; Z88.2 Allergy status to sulfonamides; Z79.899 Other long term (current) drug therapy
CPT/HCPCS: 74177; 76705; 80053; 80320; 82947; 83690; 84703; 85025; 96365-59; 96375; 96376; 99284-25; J2405; J2470; J3010; J3480; J7030; Q9967

== ENCOUNTER → 2025-07-24 | Outpatient (CLI) | payer OTHER ==
[2025-07-30 12:57] LABS: GIARDIA ANTIGEN BY EIA Negative (Negative)
[2025-08-01 22:57] LABS: OVA AND PARASITE,FECAL INTERP Negative (Negative)
[2025-08-02 17:26] LABS: CALPROTECTIN,FECAL 262 ug/g (<=49)
== END ==
LOC: LAB SHORT 08:50 → LAB 08:50
PROVIDERS: Internal Medicine Gastroenterology
DX: K52.9 Noninfective gastroenteritis and colitis, unspecified (principal)
CPT/HCPCS: 83993; 87015; 87045; 87046; 87177; 87205; 87209; 87329; 87899